=== PATIENT | male | born 1965 | race American Indian/Alaskan Native ===

== ENCOUNTER 2021-02-06 17:49 | Inpatient (IN) | payer MEDICARE ==
[2021-02-06] MEDS ORDERED: traZODone 50 MG TAB PO SCH (22:00)
[2021-02-07 09:52] LABS: Basophils % (Auto) 0.4 % (0.0-1.8); Eosinophils # (Auto) 0.1 K/mm3 (0.0-0.4); Eosinophils % (Auto) 1.9 % (0.0-4.3); Hematocrit 44.8 % (35.5-45.6); Hemoglobin 14.6 gm/dl (11.8-15.2); Lymphocytes # (Auto) 1.4 K/mm3 (1.2-5.4); Mean Corpuscular HGB Conc 33 % (32-34); Mean Corpuscular Volume 91 fl (84-94); Monocytes # (Auto) 0.4 K/mm3 (0.0-0.8); Monocytes % (Auto) 10.4 % (0.0-7.3); Platelet Count 118 K/mm3 (140-440); Red Blood Count 4.95 M/mm3 (3.65-5.03); Red Cell Distribution Width 15.2 % (13.2-15.2)
--- NOTE | 2021-02-07 10:11 | History and Physical Report ---
GP History & Physical - History of Present Illness Date of admission: 02/06/21 Date of Examination: 02/07/21 Reason for Admission: Danger to self, Failure of Outpatient Treatment History of Present Illness: Per Admission Note: Patient brought to unit ambulatory by transportation at 1945 on 02/06. He has a history of schizoaffective disorder and bipolar disorder. He also has a learning disability. The patient was taken to ED by his brother whom patient lives with. The brother states patient has become increasingly depressed. He has stressors of the of a cousin last week and his father is in poor health. The brother reports this depressive state comes before an episode of joe. They are hoping to stop it before it gets worse. Carmita Quijano is a 55y/o male patient who was seen today. The patient is slow to respond. He is a poor historian. He is calm and cooperative. He says he is depressed and has racing thoughts. The patient says he has bipolar but he could not tell what meds he was on outside of trazodone. He denies SI/HI or hallucinations of any kind. He denies any illicit drug use, alcohol or nicotine. PAST PSYCHIATRIC HISTORY: Diagnoses: Schizoaffective Suicide attempts or Self-harm behavior: Denies Prior psychiatric hospitalizations: Denies Substance Abuse history: Denies Previous psychiatric medications tried: could not recall but trazodone Outpatient treatment: yes PAST MEDICAL HISTORY: None reported or document Family Psychiatric History: None reported or documented SOCIAL HISTORY Marital Status: Single Living Arrangements: with brother and dad Employment Status: disabled Access to guns/weapons: denies Education: History of Abuse: denies Legal History: denies REVIEW OF SYSTEMS Constitutional: Negative for weight loss ENT: Negative for stridor Respiratory: Negative for cough or hemoptysis All other systems reviewed and are negative MENTAL STATUS EXAMINATION General Appearance and Behavior: Age appropriate, good hygiene, wearing appropriate clothes, calm and cooperative polite with questioning. Cooperation: engaged Psychomotor Behavior: Psychomotor normal Mood: "depressed" Affect and affective range: congruent with stated mood Thought Process: circumstantial Thought Content: depression Speech: Normal volume, Regular rate and rhythm, Suicidal Ideation: Denies Homicidal Ideation: Denies Hallucinations: Denies Delusions: None elicited Impulse Control: Unimpaired Insight and Judgment: Limited insight and poor judgment Memory: Limited Attention: attentive Orientation: alert and oriented Assessment and Plan (1) Schizoaffective Disorder Current Visit: Yes Status: Acute Treatment Plan Patient admitted for inpatient psychiatric evaluation, medication adjustment and close monitoring The patient's behavior, mood, sleep and appetite will be closely monitored. Patient enrolled in individual and group therapeutic sessions and encouraged to attend. Patient provided with a safe and structured environment. Patient's physical health needs will be addressed by the Hospitalist. Hospitalist Consulted Labs including CBC, CMP, Lipid profile and Hemoglobin A1C levels ordered for baseline reference Social Assessment will be completed and the Public Service Officer will work with patient and family to ensure a suitable and safe disposition Medication adjustment will be made as clinically indicated Started Home meds Start Prozac 10mg po daily Usual Wellness Muslim/Preservation: - Start Trazodone 50 mg po QHS & 50 mg po QHS PRN between 10 PM & 2 AM for ins omnia - Start Melatonin 5 mg po QHS to promote circadian rhythm The patient agreed on the treatment plan, understood the risk, benefit, alternative treatment, potential consequence of no treatment, and gave informed consent. Estimated days: 6 Post hospital care: primary care provider, psychiatric provider Case staffed with Dr. Hernandez Legal Status: Voluntary Reaction to Hospitalization: Accepting Medications and Allergies Allergies Allergy/AdvReac Type Severity Reaction Status Date / Time No Known Allergies Allergy Verified 02/06/21 22:53 Home Medications Medication Instructions Recorded Confirmed Last Taken Type Aripiprazole Lauroxil [Aristada] 882 mg IM QMONTH 02/07/21 02/07/21 Unknown History Aspirin EC [Ecotrin] 325 mg PO QDAY 02/07/21 02/07/21 Unknown History Atorvastatin [Lipitor Tab] 80 mg PO QHS 02/07/21 02/07/21 Unknown History Benztropine [Cogentin] 0.5 mg PO BID 02/07/21 02/07/21 Unknown History Divalproex [Mayo MACHADO] 250 mg PO BID 02/07/21 02/07/21 Unknown History Divalproex [Mayo MACHADO] 500 mg PO TID 02/07/21 02/07/21 Unknown History Mirtazapine 7.5 mg PO HS 02/07/21 02/07/21 Unknown History OLANZapine [Zyprexa] 20 mg PO HS 02/07/21 02/07/21 Unknown History Pantoprazole [Protonix] 40 mg PO QDAY 02/07/21 02/07/21 Unknown History Quetiapine Fumarate [SEROquel] 300 mg PO HS 02/07/21 02/07/21 Unknown History amLODIPine [Norvasc] 10 mg PO DAILY 02/07/21 02/07/21 Unknown History Active Meds: Active Medications Trazodone HCl (Trazodone 50 Mg Tab) 50 mg PO QHS [facility] Last Admin: 02/07/21 02:24 Dose: Not Given Documented by: Results - Results Labs/Vitals: Laboratory Last Values WBC 4.2 K/mm3 (4.5-11.0) L 02/07/21 09:11 RBC 4.95 M/mm3 (3.65-5.03) 02/07/21 09:11 Hgb 14.6 gm/dl (11.8-15.2) 02/07/21 09:11 Hct 44.8 % (35.5-45.6) 02/07/21 09:11 MCV 91 fl (84-94) 02/07/21 09:11 MCH 29 pg (28-32) 02/07/21 09:11 MCHC 33 % (32-34) 02/07/21 09:11 RDW 15.2 % (13.2-15.2) 02/07/21 09:11 Plt Count 118 K/mm3 (140-440) L 02/07/21 09:11 Lymph % (Auto) 34.0 % (13.4-35.0) 02/07/21 09:11 [place] % (Auto) 10.4 % (0.0-7.3) H 02/07/21 09:11 Eos % (Auto) 1.9 % (0.0-4.3) 02/07/21 09:11 Baso % (Auto) 0.4 % (0.0-1.8) 02/07/21 09:11 Lymph # (Auto) 1.4 K/mm3 (1.2-5.4) 02/07/21 09:11 [place] # (Auto) 0.4 K/mm3 (0.0-0.8) 02/07/21 09:11 Eos # (Auto) 0.1 K/mm3 (0.0-0.4) 02/07/21 09:11 Baso # (Auto) 0.0 K/mm3 (0.0-0.1) 02/07/21 09:11 Seg Neutrophils % 53.3 % (40.0-70.0) 02/07/21 09:11 Seg Neutrophils # 2.3 K/mm3 (1.8-7.7) 02/07/21 09:11 POC Glucose 110 mg/dL (70-105) H 02/06/21 22:27 Last Vital Signs Temp 98.2 F 02/06/21 22:00 Pulse 66 02/06/21 22:00 Resp 18 02/06/21 22:00 BP 117/83 02/06/21 22:00 Pulse Ox Physical Examination - Constitutional Vitals: Vital Signs Temp Pulse Resp BP Pulse Ox 98.2 F 66 18 117/83 02/06/21 22:00 02/06/21 22:00 02/06/21 22:00 02/06/21 22:00 Temperature -Last 24 Hours Temperature 98.2 F Mental Status Exam - Vital signs Last Vital Signs Temp 98.2 F 02/06/21 22:00 Pulse 66 02/06/21 22:00 Resp 18 02/06/21 22:00 BP 117/83 02/06/21 22:00 Pulse Ox Physician Certification - Certification Statement Physician Certification Statement: This is an acknowledgement statement that CARMITA QUIJANO is a 55 year old M who requires inpatient psychiatric admission for treatment which could reasonably be expected to improve the patient's condition for Estimated period of time patient will need to remain in the hospital: [ ] Plan for post-hospital care: [ ]
[2021-02-07 10:27] LABS: Albumin 3.5 g/dL (3.9-5); Calcium 9.4 mg/dL (8.4-10.2); Chol/HDL Ratio 1.84 %
[2021-02-07] MEDS ORDERED: ARIPIPRAZOLE LAUROXIL 882 MG/3.2 ML IM SCH (10:30)
[2021-02-07] MEDS ORDERED: DIVALPROEX DR 250 MG TAB PO SCH (11:00)
[2021-02-07] MEDS ORDERED: FLUoxetine 10 MG TAB PO SCH (11:00)
[2021-02-07] MEDS: PANTOPRAZOLE 40 MG TAB PO SCH (11:59)
[2021-02-07] MEDS: ASPIRIN EC 325 MG TAB PO SCH (11:59)
[2021-02-07] MEDS: amLODIPine 10 MG TAB PO SCH (11:59)
[2021-02-07] MEDS: BENZTROPINE 0.5 MG TAB PO SCH ×2 (11:59→21:21)
[2021-02-07 12:30] LABS: Hepatitis C Virus Antibody Non-Reactive (NonReactive)
--- NOTE | 2021-02-07 12:50 | Consultation ---
History of Present Illness - Reason for Consult Consult date: 02/07/21 Medical consult Requesting physician: JHON CABELLO Medications and Allergies Allergies Allergy/AdvReac Type Severity Reaction Status Date / Time No Known Allergies Allergy Verified 02/06/21 22:53 Home Medications Medication Instructions Recorded Confirmed Last Taken Type Aripiprazole Lauroxil [Aristada] 882 mg IM QMONTH 02/07/21 02/07/21 Unknown History Aspirin EC [Ecotrin] 325 mg PO QDAY 02/07/21 02/07/21 Unknown History Atorvastatin [Lipitor Tab] 80 mg PO QHS 02/07/21 02/07/21 Unknown History Benztropine [Cogentin] 0.5 mg PO BID 02/07/21 02/07/21 Unknown History Divalproex [Mayo MACHADO] 250 mg PO BID 02/07/21 02/07/21 Unknown History Divalproex [Mayo MACHADO] 500 mg PO TID 02/07/21 02/07/21 Unknown History Mirtazapine 7.5 mg PO HS 02/07/21 02/07/21 Unknown History OLANZapine [Zyprexa] 20 mg PO HS 02/07/21 02/07/21 Unknown History Pantoprazole [Protonix] 40 mg PO QDAY 02/07/21 02/07/21 Unknown History Quetiapine Fumarate [SEROquel] 300 mg PO HS 02/07/21 02/07/21 Unknown History amLODIPine [Norvasc] 10 mg PO DAILY 02/07/21 02/07/21 Unknown History Active Meds: Active Medications Amlodipine Besylate (Amlodipine 10 Mg Tab) 10 mg PO DAILY [facility] Last Admin: 02/07/21 11:59 Dose: 10 mg Documented by: Aspirin (Aspirin Ec 325 Mg Tab) 325 mg PO QDAY [facility] Last Admin: 02/07/21 11:59 Dose: 325 mg Documented by: Atorvastatin Calcium (Atorvastatin 40 Mg Tab) 80 mg PO QHS [facility] Benztropine Mesylate (Benztropine 0.5 Mg Tab) 0.5 mg PO BID [facility] Last Admin: 02/07/21 11:59 Dose: 0.5 mg Documented by: Divalproex Sodium (Divalproex Dr 250 Mg Tab) 250 mg PO BID [facility] Last Admin: 02/07/21 11:59 Dose: 250 mg Documented by: Divalproex Sodium (Divalproex Dr 500 Mg Tab) 500 mg PO TID [facility] Fluoxetine HCl (Fluoxetine 10 Mg Tab) 10 mg PO QDAY [facility] Last Admin: 02/07/21 11:59 Dose: 10 mg Documented by: Mirtazapine (Mirtazapine 15 Mg Tab) 7.5 mg PO QHS [facility] Miscellaneous Medication (Aripiprazole Lauroxil [Aristada]) 882 mg IM QMONTH [facility] Olanzapine (Olanzapine 10 Mg Tab) 10 mg PO HS [facility] Pantoprazole Sodium (Pantoprazole 40 Mg Tab) 40 mg PO QDAY [facility] Last Admin: 02/07/21 11:59 Dose: 40 mg Documented by: Quetiapine Fumarate (Quetiapine 100 Mg Tab) 300 mg PO HS [facility] Trazodone HCl (Trazodone 50 Mg Tab) 50 mg PO QHS [facility] Last Admin: 02/07/21 02:24 Dose: Not Given Documented by: Exam - Constitutional Vitals: Temp Pulse Resp BP Pulse Ox 97.5 F L 72 18 120/85 97 02/07/21 08:30 02/07/21 11:59 02/07/21 08:30 02/07/21 11:59 02/07/21 08:30 Results - Labs CBC & Chem 7: 02/07/21 09:11 02/07/21 09:11 Labs: Abnormal lab results 02/06/21 02/07/21 02/07/21 Range/Units 22:27 09:11 09:11 WBC 4.2 L (4.5-11.0) K/mm3 Plt Count 118 L (140-440) K/mm3 [place] % (Auto) 10.4 H (0.0-7.3) % BUN 27 H (9-20) mg/dL Creatinine 1.6 H (0.8-1.3) mg/dL POC Glucose 110 H (70-105) mg/dL AST 55 H (5-40) units/L Albumin 3.5 L (3.9-5) g/dL LDL Cholesterol Direct 46 L (50-130) mg/dL HDL Cholesterol 77 H (40-59) mg/dL
--- NOTE | 2021-02-07 12:52 | Consultation ---
History of Present Illness - Reason for Consult Consult date: 02/07/21 Medical consult Requesting physician: JHON CABELLO - History of Present Illness 55-year-old male patient with significant past medical history of bronchial asthma history of HIV hypertension major depression anxiety polysubstance abuse was admitted to the psych unit for suicidal thoughts and severe depression and anxiety Hospitalist service was requested medical consultation When I evaluated the patient patient is severely depressed very calm and minimally communicative Not in acute distress, patient denies any chest pain denies shortness of breath Patient denies headache or dizziness Complains of mild depression, sometimes patient does not communicate No other history available Past History Past Medical History: HIV/AIDS (HIV), hypertension, hyperlipidemia, other (Bronchial asthma, schizoaffective) Past Surgical History: No surgical history Social history: smoking, alcohol abuse, other (Recreational drug use) Family history: no significant family history Medications and Allergies Allergies Allergy/AdvReac Type Severity Reaction Status Date / Time No Known Allergies Allergy Verified 02/06/21 22:53 Home Medications Medication Instructions Recorded Confirmed Last Taken Type Aripiprazole Lauroxil [Aristada] 882 mg IM QMONTH 02/07/21 02/07/21 Unknown History Aspirin EC [Ecotrin] 325 mg PO QDAY 02/07/21 02/07/21 Unknown History Atorvastatin [Lipitor Tab] 80 mg PO QHS 02/07/21 02/07/21 Unknown History Benztropine [Cogentin] 0.5 mg PO BID 02/07/21 02/07/[address] Jameel MACHADO] 250 mg PO BID 02/07/21 02/07/[address] Jameel MACHADO] 500 mg PO TID 02/07/21 02/07/21 Unknown History Mirtazapine 7.5 mg PO HS 02/07/21 02/07/21 Unknown History OLANZapine [Zyprexa] 20 mg PO HS 02/07/21 02/07/21 Unknown History Pantoprazole [Protonix] 40 mg PO QDAY 02/07/21 02/07/21 Unknown History Quetiapine Fumarate [SEROquel] 300 mg PO HS 02/07/21 02/07/21 Unknown History amLODIPine [Norvasc] 10 mg PO DAILY 02/07/21 02/07/21 Unknown History Active Meds: Active Medications Amlodipine Besylate (Amlodipine 10 Mg Tab) 10 mg PO DAILY [facility] Last Admin: 02/07/21 11:59 Dose: 10 mg Documented by: Aspirin (Aspirin Ec 325 Mg Tab) 325 mg PO QDAY [facility] Last Admin: 02/07/21 11:59 Dose: 325 mg Documented by: Atorvastatin Calcium (Atorvastatin 40 Mg Tab) 80 mg PO QHS [facility] Benztropine Mesylate (Benztropine 0.5 Mg Tab) 0.5 mg PO BID [facility] Last Admin: 02/07/21 11:59 Dose: 0.5 mg Documented by: Divalproex Sodium (Divalproex Dr 250 Mg Tab) 250 mg PO BID [facility] Last Admin: 02/07/21 11:59 Dose: 250 mg Documented by: Divalproex Sodium (Divalproex Dr 500 Mg Tab) 500 mg PO TID [facility] Fluoxetine HCl (Fluoxetine 10 Mg Tab) 10 mg PO QDAY [facility] Last Admin: 02/07/21 11:59 Dose: 10 mg Documented by: Mirtazapine (Mirtazapine 15 Mg Tab) 7.5 mg PO QHS [facility] Miscellaneous Medication (Aripiprazole Lauroxil [Aristada]) 882 mg IM QMONTH [facility] Olanzapine (Olanzapine 10 Mg Tab) 10 mg PO HS [facility] Pantoprazole Sodium (Pantoprazole 40 Mg Tab) 40 mg PO QDAY [facility] Last Admin: 02/07/21 11:59 Dose: 40 mg Documented by: Quetiapine Fumarate (Quetiapine 100 Mg Tab) 300 mg PO HS [facility] Trazodone HCl (Trazodone 50 Mg Tab) 50 mg PO QHS [facility] Last Admin: 02/07/21 02:24 Dose: Not Given Documented by: Review of Systems ROS unobtainable: due to mental status Exam - Constitutional Vitals: Temp Pulse Resp BP Pulse Ox 97.5 F L 72 18 120/85 97 02/07/21 08:30 02/07/21 11:59 02/07/21 08:30 02/07/21 11:59 02/07/21 08:30 General appearance: Present: no acute distress, other (Depressed, calm and minimally communicative) - EENT Eyes: Present: PERRL, EOM intact - Neck Neck: Present: supple, normal ROM - Respiratory Respiratory effort: normal Respiratory: bilateral: diminished, rhonchi, negative: rales, wheezing - Cardiovascular Rhythm: regular Heart Sounds: Present: S1 & S2 - Extremities Extremities: no ischemia, No edema - Abdominal General gastrointestinal: Present: soft, non-tender, non-distended, normal bowel sounds - Integumentary Integumentary: Present: clear, warm - Musculoskeletal Musculoskeletal: generalized weakness - Psychiatric Psychiatric: cooperative, depressed, other (Minimally communicative) - Neurologic Neurologic: moves all extremities Results - Labs CBC & Chem 7: 02/07/21 09:11 02/07/21 09:11 Labs: Abnormal lab results 02/06/21 02/07/21 02/07/21 Range/Units 22:27 09:11 09:11 WBC 4.2 L (4.5-11.0) K/mm3 Plt Count 118 L (140-440) K/mm3 [place] % (Auto) 10.4 H (0.0-7.3) % BUN 27 H (9-20) mg/dL Creatinine 1.6 H (0.8-1.3) mg/dL POC Glucose 110 H (70-105) mg/dL AST 55 H (5-40) units/L Albumin 3.5 L (3.9-5) g/dL LDL Cholesterol Direct 46 L (50-130) mg/dL HDL Cholesterol 77 H (40-59) mg/dL Assessment and Plan --Hypertension; well controlled Continue current home antihypertensives And as needed hydralazine. --History of bronchial asthma; Patient is stable no shortness of breath However albuterol inhaler every 6 hours as needed for shortness of breath and wheeze --History of HIV; Resume home medications --Acute kidney injury; vasomotor nephropathy Closely monitor renal function Avoid nephrotoxins --Dyslipidemia; continue statin --DVT prophylaxis; SCDs while resting --Full CODE STATUS We will closely monitor the patient and adjust the management as needed Plan of care reviewed with the patient and his nurse Thank you for this consultation. We will follow the patient along with you as needed Call us with questions ;;
[2021-02-07 14:27] LABS: Hepatitis B Surface Antigen Nonreactive (Negative)
[2021-02-07] MEDS: DIVALPROEX DR 500 MG TAB PO SCH ×2 (15:15→21:21)
[2021-02-07] MEDS: MIRTAZAPINE 15 MG TAB PO SCH (21:21)
[2021-02-07] MEDS: QUEtiapine 100 MG TAB PO SCH (21:22)
[2021-02-07] MEDS ORDERED: NON-FORMULARY EACH (Quetiapine Fumarate [Seroquel] 300 MG Tablet) PO SCH (22:00)
[2021-02-07] MEDS ORDERED: NON-FORMULARY EACH (Mirtazapine [Mirtazapine] 7.5 MG Tablet) PO SCH (22:00)
[2021-02-07] MEDS ORDERED: traZODone 50 MG TAB PO PRN (22:00)
[2021-02-07] MEDS ORDERED: NON-FORMULARY EACH (Olanzapine [Zyprexa] 20 MG Tablet) PO SCH (22:00)
[2021-02-07] MEDS ORDERED: NON-FORMULARY EACH (Atorvastatin [Lipitor] 80 MG Tablet) PO SCH (22:00)
--- NOTE | 2021-02-08 09:23 | Progress Note ---
Subjective Date of service: 02/08/21 Principal diagnosis: Schizoaffective Disorder Subjective Comment: The patient was seen today, he is slow to respond. He is looking around as he speaks. He appears delayed. The patient could possibly be responding to internal stimuli, although he denies hallucinations. He does verbalized depression. He denies hallucinations. REVIEW OF SYSTEMS Constitutional: Negative for weight loss ENT: Negative for stridor Respiratory: Negative for cough or hemoptysis All other systems reviewed and are negative MENTAL STATUS EXAMINATION General Appearance and Behavior: Age appropriate, good hygiene, wearing appro priate clothes, calm and cooperative polite with questioning. Cooperation: engaged Psychomotor Behavior: Psychomotor normal Mood: "depressed" Affect and affective range: congruent with stated mood Thought Process: circumstantial Thought Content: depression Speech: Normal volume, Regular rate and rhythm, Suicidal Ideation: Denies Homicidal Ideation: Denies Hallucinations: Denies Delusions: None elicited Impulse Control: Unimpaired Insight and Judgment: Limited insight and poor judgment Memory: Limited Attention: attentive Orientation: alert and oriented Assessment and Plan (1) Schizoaffective Disorder Current Visit: Yes Status: Acute Treatment Plan Patient admitted for inpatient psychiatric evaluation, medication adjustment and close monitoring The patient's behavior, mood, sleep and appetite will be closely monitored. Patient enrolled in individual and group therapeutic sessions and encouraged to attend. Patient provided with a safe and structured environment. Patient's physical health needs will be addressed by the Hospitalist. Hospitalist Consulted Labs including CBC, CMP, Lipid profile and Hemoglobin A1C levels ordered for baseline reference Social Assessment will be completed and the Teleradiologist will work with patient and family to ensure a suitable and safe disposition Medication adjustment will be made as clinically indicated Inxcrease Prozac 20mg po daily Continue increase of home Seroquel at 300mg po qhs Usual Wellness [facility]/Preservation: - Start Trazodone 50 mg po QHS & 50 mg po QHS PRN between 10 PM & 2 AM for insomnia - Start Melatonin 5 mg po QHS to promote circadian rhythm The patient agreed on the treatment plan, understood the risk, benefit, alternative treatment, potential consequence of no treatment, and gave informed consent. Estimated days: 6 Post hospital care: primary care provider, psychiatric provider Case staffed with Dr. Hernandez Medications and Allergies Allergies Allergy/AdvReac Type Severity Reaction Status Date / Time No Known Allergies Allergy Verified 02/06/21 22:53 Home Medications Medication Instructions Recorded Confirmed Last Taken Type Aripiprazole Lauroxil [Aristada] 882 mg IM QMONTH 02/07/21 02/07/21 Unknown History Aspirin EC [Ecotrin] 325 mg PO QDAY 02/07/21 02/07/21 Unknown History Atorvastatin [Lipitor Tab] 80 mg PO QHS 02/07/21 02/07/21 Unknown History Benztropine [Cogentin] 0.5 mg PO BID 02/07/21 02/07/21 Unknown History Divalproex [Mayo MACHADO] 250 mg PO BID 02/07/21 02/07/21 Unknown History Divalproex [Mayo MACHADO] 500 mg PO TID 02/07/21 02/07/21 Unknown History Mirtazapine 7.5 mg PO 02/07/21 02/07/21 Unknown History OLANZapine [Zyprexa] 20 mg PO HS 02/07/21 02/07/21 Unknown History Pantoprazole [Protonix] 40 mg PO QDAY 02/07/21 02/07/21 Unknown History Quetiapine Fumarate [SEROquel] 300 mg PO HS 02/07/21 02/07/21 Unknown History amLODIPine [Norvasc] 10 mg PO DAILY 02/07/21 02/07/21 Unknown History Active Meds: Active Medications Amlodipine Besylate (Amlodipine 10 Mg Tab) 10 mg PO DAILY [facility] Last Admin: 02/07/21 11:59 Dose: 10 mg Documented by: Aspirin (Aspirin Ec 325 Mg Tab) 325 mg PO QDAY [facility] Last Admin: 02/07/21 11:59 Dose: 325 mg Documented by: Atorvastatin Calcium (Atorvastatin 40 Mg Tab) 80 mg PO QHS [facility] Last Admin: 02/07/21 21:21 Dose: 80 mg Documented by: Benztropine Mesylate (Benztropine 0.5 Mg Tab) 0.5 mg PO BID [facility] Last Admin: 02/07/21 21:21 Dose: 0.5 mg Documented by: Divalproex Sodium (Divalproex Dr 500 Mg Tab) 500 mg PO TID [facility] Last Admin: 02/07/21 21:21 Dose: 500 mg Documented by: Fluoxetine HCl (Fluoxetine 10 Mg Tab) 10 mg PO QDAY [facility] Last Admin: 02/07/21 11:59 Dose: 10 mg Documented by: Mirtazapine (Mirtazapine 15 Mg Tab) 7.5 mg PO QHS [facility] Last Admin: 02/07/21 21:21 Dose: 7.5 mg Documented by: Miscellaneous Medication (Aripiprazole Lauroxil [Aristada]) 882 mg IM QMONTH [facility] Olanzapine (Olanzapine 10 Mg Tab) 10 mg PO HS [facility] Last Admin: 02/07/21 21:21 Dose: 10 mg Documented by: Pantoprazole Sodium (Pantoprazole 40 Mg Tab) 40 mg PO QDAY [facility] Last Admin: 02/07/21 11:59 Dose: 40 mg Documented by: Quetiapine Fumarate (Quetiapine 100 Mg Tab) 300 mg PO HS [facility] Last Admin: 02/07/21 21:22 Dose: 300 mg Documented by: Trazodone HCl (Trazodone 50 Mg Tab) 50 mg PO QHS PRN PRN Reason: Insomnia Results - Results Labs/Vitals: Laboratory Last Values WBC 4.2 K/mm3 (4.5-11.0) L 02/07/21 09:11 RBC 4.95 M/mm3 (3.65-5.03) 02/07/21 09:11 Hgb 14.6 gm/dl (11.8-15.2) 02/07/21 09:11 Hct 44.8 % (35.5-45.6) 02/07/21 09:11 MCV 91 fl (84-94) 02/07/21 09:11 MCH 29 pg (28-32) 02/07/21 09:11 MCHC 33 % (32-34) 02/07/21 09:11 RDW 15.2 % (13.2-15.2) 02/07/21 09:11 Plt Count 118 K/mm3 (140-440) L 02/07/21 09:11 Lymph % (Auto) 34.0 % (13.4-35.0) 02/07/21 09:11 [place] % (Auto) 10.4 % (0.0-7.3) H 02/07/21 09:11 Eos % (Auto) 1.9 % (0.0-4.3) 02/07/21 09:11 Baso % (Auto) 0.4 % (0.0-1.8) 02/07/21 09:11 Lymph # (Auto) 1.4 K/mm3 (1.2-5.4) 02/07/21 09:11 [place] # (Auto) 0.4 K/mm3 (0.0-0.8) 02/07/21 09:11 Eos # (Auto) 0.1 K/mm3 (0.0-0.4) 02/07/21 09:11 Baso # (Auto) 0.0 K/mm3 (0.0-0.1) 02/07/21 09:11 Seg Neutrophils % 53.3 % (40.0-70.0) 02/07/21 09:11 Seg Neutrophils # 2.3 K/mm3 (1.8-7.7) 02/07/21 09:11 Sodium 139 mmol/L (137-145) 02/07/21 09:11 Potassium 4.4 mmol/L (3.6-5.0) 02/07/21 09:11 Chloride 102.8 mmol/L (98-107) 02/07/21 09:11 Carbon Dioxide 25 mmol/L (22-30) 02/07/21 09:11 Anion Gap 16 mmol/L 02/07/21 09:11 BUN 27 mg/dL (9-20) H 02/07/21 09:11 Creatinine 1.6 mg/dL (0.8-1.3) H 02/07/21 09:11 Estimated GFR 55 ml/min 02/07/21 09:11 BUN/Creatinine Ratio 17 % 02/07/21 09:11 Glucose 83 mg/dL (75-100) 02/07/21 09:11 POC Glucose 110 mg/dL (70-105) H 02/06/21 22:27 Calcium 9.4 mg/dL (8.4-10.2) 02/07/21 09:11 Total Bilirubin 0.50 mg/dL (0.1-1.2) 02/07/21 09:11 AST 55 units/L (5-40) H 02/07/21 09:11 ALT 31 units/L (7-56) 02/07/21 09:11 Alkaline Phosphatase 56 units/L (35-129) 02/07/21 09:11 Total Protein 7.5 g/dL (6.3-8.2) 02/07/21 09:11 Albumin 3.5 g/dL (3.9-5) L 02/07/21 09:11 Albumin/Globulin Ratio 0.9 % 02/07/21 09:11 Triglycerides 69 mg/dL (2-149) 02/07/21 09:11 Cholesterol 142 mg/dL (50-199) 02/07/21 09:11 LDL Cholesterol Direct 46 mg/dL (50-130) L 02/07/21 09:11 HDL Cholesterol 77 mg/dL (40-59) H 02/07/21 09:11 Cholesterol/HDL Ratio 1.84 % 02/07/21 09:11 TSH 1.120 mlU/mL (0.270-4.200) 02/07/21 09:11 Hepatitis A IgM Ab Non-reactive (NonReactive) 02/07/21 09:11 Hep Bs Antigen Nonreactive (Negative) 02/07/21 09:11 Hep B Core IgM Ab Non-reactive (NonReactive) 02/07/21 09:11 Hepatitis C Antibody Non-reactive (NonReactive) 02/07/21 09:11 Last Vital Signs Temp 98.6 F 02/07/21 20:14 Pulse 92 H 02/07/21 20:14 Resp 16 02/07/21 20:14 BP 122/86 02/07/21 20:14 Pulse Ox 97 02/07/21 20:14
[2021-02-08] MEDS: amLODIPine 10 MG TAB PO SCH (09:51)
[2021-02-08] MEDS: PANTOPRAZOLE 40 MG TAB PO SCH (09:51)
[2021-02-08] MEDS: ASPIRIN EC 325 MG TAB PO SCH (09:51)
[2021-02-08] MEDS: DIVALPROEX DR 500 MG TAB PO SCH ×3 (09:52→21:19)
[2021-02-08] MEDS: BENZTROPINE 0.5 MG TAB PO SCH ×2 (09:52→21:19)
[2021-02-08] MEDS: FLUoxetine 20 MG CAP PO SCH (12:52)
[2021-02-08] MEDS: QUEtiapine 100 MG TAB PO SCH (21:19)
[2021-02-08] MEDS: MIRTAZAPINE 15 MG TAB PO SCH (21:20)
--- NOTE | 2021-02-09 10:05 | Progress Note ---
Subjective Date of service: 02/09/21 Principal diagnosis: Schizoaffective Disorder Subjective Comment: The patient was seen today, he is slow to respond. He says he's "doing alright, but a little depressed." He denies SI/HI or hallucinatoins. REVIEW OF SYSTEMS Constitutional: Negative for weight loss ENT: Negative for stridor Respiratory: Negative for cough or hemoptysis All other systems reviewed and are negative MENTAL STATUS EXAMINATION General Appearance and Behavior: Age appropriate, good hygiene, wearing appropriate clothes, calm and cooperative polite with questioning. Cooperation: engaged Psychomotor Behavior: Psychomotor normal Mood: "depressed" Affect and affective range: congruent with stated mood Thought Process: circumstantial Thought Content: depression Speech: Normal volume, Regular rate and rhythm, Suicidal Ideation: Denies Homicidal Ideation: Denies Hallucinations: Denies Delusions: None elicited Impulse Control: Unimpaired Insight and Judgment: Limited insight and poor judgment Memory: Limited Attention: attentive Orientation: alert and oriented Assessment and Plan (1) Schizoaffective Disorder Current Visit: Yes Status: Acute Treatment Plan Patient admitted for inpatient psychiatric evaluation, medication adjustment and close monitoring The patient's behavior, mood, sleep and appetite will be closely monitored. Patient enrolled in individual and group therapeutic sessions and encouraged to attend. Patient provided with a safe and structured environment. Patient's physical health needs will be addressed by the Hospitalist. Hospitalist Consulted Labs including CBC, CMP, Lipid profile and Hemoglobin A1C levels ordered for baseline reference Social Assessment will be completed and the Power Builder Developer will work with patient and family to ensure a suitable and safe disposition Medication adjustment will be made as clinically indicated Increased Prozac 20mg po daily yesterday Continue increase of home Seroquel at 300mg po qhs Usual Wellness Judaism/Preservation: - Start Trazodone 50 mg po QHS & 50 mg po QHS PRN between 10 PM & 2 AM for insomnia - Start Melatonin 5 mg po QHS to promote circadian rhythm The patient agreed on the treatment plan, understood the risk, benefit, alternative treatment, potential consequence of no treatment, and gave informed consent. Estimated days: 6 Post hospital care: primary care provider, psychiatric provider Case staffed with Dr. Hernandez Medications and Allergies Allergies Allergy/AdvReac Type Severity Reaction Status Date / Time No Known Allergies Allergy Verified 02/06/21 22:53 Home Medications Medication Instructions Recorded Confirmed Last Taken Type Aripiprazole Lauroxil [Aristada] 882 mg IM QMONTH 02/07/21 02/07/21 Unknown History Aspirin EC [Ecotrin] 325 mg PO QDAY 02/07/21 02/07/21 Unknown History Atorvastatin [Lipitor Tab] 80 mg PO QHS 02/07/21 02/07/21 Unknown History Benztropine [Cogentin] 0.5 mg PO BID 02/07/21 02/07/21 Unknown History Divalproex [Mayo MACHADO] 250 mg PO BID 02/07/21 02/07/21 Unknown History Divalproex [Mayo MACHADO] 500 mg PO TID 02/07/21 02/07/21 Unknown History Mirtazapine 7.5 mg PO 02/07/21 02/07/21 Unknown History OLANZapine [Zyprexa] 20 mg PO HS 02/07/21 02/07/21 Unknown History Pantoprazole [Protonix] 40 mg PO QDAY 02/07/21 02/07/21 Unknown History Quetiapine Fumarate [SEROquel] 300 mg PO 02/07/21 02/07/21 Unknown History amLODIPine [Norvasc] 10 mg PO DAILY 02/07/21 02/07/21 Unknown History Active Meds: Active Medications Amlodipine Besylate (Amlodipine 10 Mg Tab) 10 mg PO DAILY [facility] Last Admin: 02/08/21 09:51 Dose: 10 mg Documented by: Aspirin (Aspirin Ec 325 Mg Tab) 325 mg PO QDAY [facility] Last Admin: 02/08/21 09:51 Dose: 325 mg Documented by: Atorvastatin Calcium (Atorvastatin 40 Mg Tab) 80 mg PO QHS [facility] Last Admin: 02/08/21 21:20 Dose: 80 mg Documented by: Benztropine Mesylate (Benztropine 0.5 Mg Tab) 0.5 mg PO BID [facility] Last Admin: 02/08/21 21:19 Dose: 0.5 mg Documented by: Divalproex Sodium (Divalproex Dr 500 Mg Tab) 500 mg PO TID [facility] Last Admin: 02/08/21 21:19 Dose: 500 mg Documented by: Fluoxetine HCl (Fluoxetine 20 Mg Cap) 20 mg PO QDAY [facility] Last Admin: 02/08/21 12:52 Dose: 20 mg Documented by: Mirtazapine (Mirtazapine 15 Mg Tab) 7.5 mg PO QHS [facility] Last Admin: 02/08/21 21:20 Dose: 7.5 mg Documented by: Miscellaneous Medication (Aripiprazole Lauroxil [Aristada]) 882 mg IM QMONTH [facility] Olanzapine (Olanzapine 10 Mg Tab) 10 mg PO [facility] Last Admin: 02/08/21 21:19 Dose: 10 mg Documented by: Pantoprazole Sodium (Pantoprazole 40 Mg Tab) 40 mg PO QDAY [facility] Last Admin: 02/08/21 09:51 Dose: 40 mg Documented by: Quetiapine Fumarate (Quetiapine 100 Mg Tab) 300 mg PO [facility] Last Admin: 02/08/21 21:19 Dose: 300 mg Documented by: Trazodone HCl (Trazodone 50 Mg Tab) 50 mg PO QHS PRN PRN Reason: Insomnia Results - Results Labs/Vitals: Laboratory Last Values WBC 4.2 K/mm3 (4.5-11.0) L 02/07/21 09:11 RBC 4.95 M/mm3 (3.65-5.03) 02/07/21 09:11 Hgb 14.6 gm/dl (11.8-15.2) 02/07/21 09:11 Hct 44.8 % (35.5-45.6) 02/07/21 09:11 MCV 91 fl (84-94) 02/07/21 09:11 MCH 29 pg (28-32) 02/07/21 09:11 MCHC 33 % (32-34) 02/07/21 09:11 RDW 15.2 % (13.2-15.2) 02/07/21 09:11 Plt Count 118 K/mm3 (140-440) L 02/07/21 09:11 Lymph % (Auto) 34.0 % (13.4-35.0) 02/07/21 09:11 [place] % (Auto) 10.4 % (0.0-7.3) H 02/07/21 09:11 Eos % (Auto) 1.9 % (0.0-4.3) 02/07/21 09:11 Baso % (Auto) 0.4 % (0.0-1.8) 02/07/21 09:11 Lymph # (Auto) 1.4 K/mm3 (1.2-5.4) 02/07/21 09:11 [place] # (Auto) 0.4 K/mm3 (0.0-0.8) 02/07/21 09:11 Eos # (Auto) 0.1 K/mm3 (0.0-0.4) 02/07/21 09:11 Baso # (Auto) 0.0 K/mm3 (0.0-0.1) 02/07/21 09:11 Seg Neutrophils % 53.3 % (40.0-70.0) 02/07/21 09:11 Seg Neutrophils # 2.3 K/mm3 (1.8-7.7) 02/07/21 09:11 Sodium 139 mmol/L (137-145) 02/07/21 09:11 Potassium 4.4 mmol/L (3.6-5.0) 02/07/21 09:11 Chloride 102.8 mmol/L (98-107) 02/07/21 09:11 Carbon Dioxide 25 mmol/L (22-30) 02/07/21 09:11 Anion Gap 16 mmol/L 02/07/21 09:11 BUN 27 mg/dL (9-20) H 02/07/21 09:11 Creatinine 1.6 mg/dL (0.8-1.3) H 02/07/21 09:11 Estimated GFR 55 ml/min 02/07/21 09:11 BUN/Creatinine Ratio 17 % 02/07/21 09:11 Glucose 83 mg/dL (75-100) 02/07/21 09:11 POC Glucose 110 mg/dL (70-105) H 02/06/21 22:27 Calcium 9.4 mg/dL (8.4-10.2) 02/07/21 09:11 Total Bilirubin 0.50 mg/dL (0.1-1.2) 02/07/21 09:11 AST 55 units/L (5-40) H 02/07/21 09:11 ALT 31 units/L (7-56) 02/07/21 09:11 Alkaline Phosphatase 56 units/L (35-129) 02/07/21 09:11 Total Protein 7.5 g/dL (6.3-8.2) 02/07/21 09:11 Albumin 3.5 g/dL (3.9-5) L 02/07/21 09:11 Albumin/Globulin Ratio 0.9 % 02/07/21 09:11 Triglycerides 69 mg/dL (2-149) 02/07/21 09:11 Cholesterol 142 mg/dL (50-199) 02/07/21 09:11 LDL Cholesterol Direct 46 mg/dL (50-130) L 02/07/21 09:11 HDL Cholesterol 77 mg/dL (40-59) H 02/07/21 09:11 Cholesterol/HDL Ratio 1.84 % 02/07/21 09:11 TSH 1.120 mlU/mL (0.270-4.200) 02/07/21 09:11 Hepatitis A IgM Ab Non-reactive (NonReactive) 02/07/21 09:11 Hep Bs Antigen Nonreactive (Negative) 02/07/21 09:11 Hep B Core IgM Ab Non-reactive (NonReactive) 02/07/21 09:11 Hepatitis C Antibody Non-reactive (NonReactive) 02/07/21 09:11 Last Vital Signs Temp 98.5 F 02/08/21 19:29 Pulse 92 H 02/08/21 19:29 Resp 18 02/08/21 19:29 BP 151/95 02/08/21 19:29 Pulse Ox 97 02/08/21 19:29
[2021-02-09] MEDS: amLODIPine 10 MG TAB PO SCH (10:47)
[2021-02-09] MEDS: DIVALPROEX DR 500 MG TAB PO SCH ×3 (10:47→20:53)
[2021-02-09] MEDS: ASPIRIN EC 325 MG TAB PO SCH (10:47)
[2021-02-09] MEDS: FLUoxetine 20 MG CAP PO SCH (10:47)
[2021-02-09] MEDS: PANTOPRAZOLE 40 MG TAB PO SCH (10:47)
[2021-02-09] MEDS: BENZTROPINE 0.5 MG TAB PO SCH ×2 (10:47→21:25)
[2021-02-09] MEDS: QUEtiapine 100 MG TAB PO SCH (21:25)
[2021-02-09] MEDS: MIRTAZAPINE 15 MG TAB PO SCH (21:26)
[2021-02-10] MEDS: amLODIPine 10 MG TAB PO SCH (09:14)
[2021-02-10] MEDS: ASPIRIN EC 325 MG TAB PO SCH (09:14)
[2021-02-10] MEDS: PANTOPRAZOLE 40 MG TAB PO SCH (09:14)
[2021-02-10] MEDS: DIVALPROEX DR 500 MG TAB PO SCH (09:14)
[2021-02-10] MEDS: BENZTROPINE 0.5 MG TAB PO SCH ×2 (09:14→21:18)
[2021-02-10] MEDS: FLUoxetine 20 MG CAP PO SCH (09:15)
--- NOTE | 2021-02-10 09:23 | Progress Note ---
Subjective Date of service: 02/10/21 Principal diagnosis: Schizoaffective Disorder Subjective Comment: Nurse Note: Last evening the patient spent in the activity room. He has little interaction with others. He presents as sad and depressed. He is pleasant and cooperative with care. He has a good appetite and is medication compliant. The patient was seen today, he is slow to respond. He says he is depressed a little. He could not explain why. He denies SI/HI or hallucinations. REVIEW OF SYSTEMS Constitutional: Negative for weight loss ENT: Negative for stridor Respiratory: Negative for cough or hemoptysis All other systems reviewed and are negative MENTAL STATUS EXAMINATION General Appearance and Behavior: Age appropriate, good hygiene, wearing appropriate clothes, calm and cooperative polite with questioning. Cooperation: engaged Psychomotor Behavior: Psychomotor normal Mood: "depressed" Affect and affective range: congruent with stated mood Thought Process: circumstantial Thought Content: depression Speech: Normal volume, Regular rate and rhythm, Suicidal Ideation: Denies Homicidal Ideation: Denies Hallucinations: Denies Delusions: None elicited Impulse Control: Unimpaired Insight and Judgment: Limited insight and poor judgment Memory: Limited Attention: attentive Orientation: alert and oriented Assessment and Plan (1) Schizoaffective Disorder Current Visit: Yes Status: Acute Treatment Plan Patient admitted for inpatient psychiatric evaluation, medication adjustment and close monitoring The patient's behavior, mood, sleep and appetite will be closely monitored. Patient enrolled in individual and group therapeutic sessions and encouraged to attend. Patient provided with a safe and structured environment. Patient's physical health needs will be addressed by the Hospitalist. Hospitalist Consulted Labs including CBC, CMP, Lipid profile and Hemoglobin A1C levels ordered for baseline reference Social Assessment will be completed and the Research Worker Kitchen will work with patient and family to ensure a suitable and safe disposition Valproic level 02/11 Medication adjustment will be made as clinically indicated Increased Prozac 30mg po daily Usual Wellness Evangelical/Preservation: - Start Trazodone 50 mg po QHS & 50 mg po QHS PRN between 10 PM & 2 AM for insomnia - Start Melatonin 5 mg po QHS to promote circadian rhythm The patient agreed on the treatment plan, understood the risk, benefit, alternative treatment, potential consequence of no treatment, and gave informed consent. Estimated days: 6 Post hospital care: primary care provider, psychiatric provider Case staffed with Dr. Hernandez Medications and Allergies Allergies Allergy/AdvReac Type Severity Reaction Status Date / Time No Known Allergies Allergy Verified 02/06/21 22:53 Home Medications Medication Instructions Recorded Confirmed Last Taken Type Aripiprazole Lauroxil [Aristada] 882 mg IM QMONTH 02/07/21 02/07/21 Unknown History Aspirin EC [Ecotrin] 325 mg PO QDAY 02/07/21 02/07/21 Unknown History Atorvastatin [Lipitor Tab] 80 mg PO QHS 02/07/21 02/07/21 Unknown History Benztropine [Cogentin] 0.5 mg PO BID 02/07/21 02/07/21 Unknown History Divalproex [Mayo MACHADO] 250 mg PO BID 02/07/21 02/07/21 Unknown History Divalproex [Mayo MACHADO] 500 mg PO TID 02/07/21 02/07/21 Unknown History Mirtazapine 7.5 mg PO HS 02/07/21 02/07/21 Unknown History OLANZapine [Zyprexa] 20 mg PO HS 02/07/21 02/07/21 Unknown History Pantoprazole [Protonix] 40 mg PO QDAY 02/07/21 02/07/21 Unknown History Quetiapine Fumarate [SEROquel] 300 mg PO HS 02/07/21 02/07/21 Unknown History amLODIPine [Norvasc] 10 mg PO DAILY 02/07/21 02/07/21 Unknown History Active Meds: Active Medications Amlodipine Besylate (Amlodipine 10 Mg Tab) 10 mg PO DAILY [facility] Last Admin: 02/10/21 09:14 Dose: 10 mg Documented by: Aspirin (Aspirin Ec 325 Mg Tab) 325 mg PO QDAY [facility] Last Admin: 02/10/21 09:14 Dose: 325 mg Documented by: Atorvastatin Calcium (Atorvastatin 40 Mg Tab) 80 mg PO QHS [facility] Last Admin: 02/09/21 21:25 Dose: 80 mg Documented by: Benztropine Mesylate (Benztropine 0.5 Mg Tab) 0.5 mg PO BID [facility] Last Admin: 02/10/21 09:14 Dose: 0.5 mg Documented by: Divalproex Sodium (Divalproex Dr 500 Mg Tab) 500 mg PO TID [facility] Last Admin: 02/10/21 09:14 Dose: 500 mg Documented by: Fluoxetine HCl (Fluoxetine 20 Mg Cap) 20 mg PO QDAY [facility] Last Admin: 02/10/21 09:15 Dose: 20 mg Documented by: Mirtazapine (Mirtazapine 15 Mg Tab) 7.5 mg PO QHS [facility] Last Admin: 02/09/21 21:26 Dose: 7.5 mg Documented by: Miscellaneous Medication (Aripiprazole Lauroxil [Aristada]) 882 mg IM QMONTH [facility] Olanzapine (Olanzapine 10 Mg Tab) 10 mg PO [facility] Last Admin: 02/09/21 21:25 Dose: 10 mg Documented by: Pantoprazole Sodium (Pantoprazole 40 Mg Tab) 40 mg PO QDAY [facility] Last Admin: 02/10/21 09:14 Dose: 40 mg Documented by: Quetiapine Fumarate (Quetiapine 100 Mg Tab) 300 mg PO [facility] Last Admin: 02/09/21 21:25 Dose: 300 mg Documented by: Trazodone HCl (Trazodone 50 Mg Tab) 50 mg PO QHS PRN PRN Reason: Insomnia Results - Results Labs/Vitals: Laboratory Last Values WBC 4.2 K/mm3 (4.5-11.0) L 02/07/21 09:11 RBC 4.95 M/mm3 (3.65-5.03) 02/07/21 09:11 Hgb 14.6 gm/dl (11.8-15.2) 02/07/21 09:11 Hct 44.8 % (35.5-45.6) 02/07/21 09:11 MCV 91 fl (84-94) 02/07/21 09:11 MCH 29 pg (28-32) 02/07/21 09:11 MCHC 33 % (32-34) 02/07/21 09:11 RDW 15.2 % (13.2-15.2) 02/07/21 09:11 Plt Count 118 K/mm3 (140-440) L 02/07/21 09:11 Lymph % (Auto) 34.0 % (13.4-35.0) 02/07/21 09:11 [place] % (Auto) 10.4 % (0.0-7.3) H 02/07/21 09:11 Eos % (Auto) 1.9 % (0.0-4.3) 02/07/21 09:11 Baso % (Auto) 0.4 % (0.0-1.8) 02/07/21 09:11 Lymph # (Auto) 1.4 K/mm3 (1.2-5.4) 02/07/21 09:11 [place] # (Auto) 0.4 K/mm3 (0.0-0.8) 02/07/21 09:11 Eos # (Auto) 0.1 K/mm3 (0.0-0.4) 02/07/21 09:11 Baso # (Auto) 0.0 K/mm3 (0.0-0.1) 02/07/21 09:11 Seg Neutrophils % 53.3 % (40.0-70.0) 02/07/21 09:11 Seg Neutrophils # 2.3 K/mm3 (1.8-7.7) 02/07/21 09:11 Sodium 139 mmol/L (137-145) 02/07/21 09:11 Potassium 4.4 mmol/L (3.6-5.0) 02/07/21 09:11 Chloride 102.8 mmol/L (98-107) 02/07/21 09:11 Carbon Dioxide 25 mmol/L (22-30) 02/07/21 09:11 Anion Gap 16 mmol/L 02/07/21 09:11 BUN 27 mg/dL (9-20) H 02/07/21 09:11 Creatinine 1.6 mg/dL (0.8-1.3) H 02/07/21 09:11 Estimated GFR 55 ml/min 02/07/21 09:11 BUN/Creatinine Ratio 17 % 02/07/21 09:11 Glucose 83 mg/dL (75-100) 02/07/21 09:11 POC Glucose 110 mg/dL (70-105) H 02/06/21 22:27 Calcium 9.4 mg/dL (8.4-10.2) 02/07/21 09:11 Total Bilirubin 0.50 mg/dL (0.1-1.2) 02/07/21 09:11 AST 55 units/L (5-40) H 02/07/21 09:11 ALT 31 units/L (7-56) 02/07/21 09:11 Alkaline Phosphatase 56 units/L (35-129) 02/07/21 09:11 Total Protein 7.5 g/dL (6.3-8.2) 02/07/21 09:11 Albumin 3.5 g/dL (3.9-5) L 02/07/21 09:11 Albumin/Globulin Ratio 0.9 % 02/07/21 09:11 Triglycerides 69 mg/dL (2-149) 02/07/21 09:11 Cholesterol 142 mg/dL (50-199) 02/07/21 09:11 LDL Cholesterol Direct 46 mg/dL (50-130) L 02/07/21 09:11 HDL Cholesterol 77 mg/dL (40-59) H 02/07/21 09:11 Cholesterol/HDL Ratio 1.84 % 02/07/21 09:11 TSH 1.120 mlU/mL (0.270-4.200) 02/07/21 09:11 Hepatitis A IgM Ab Non-reactive (NonReactive) 02/07/21 09:11 Hep Bs Antigen Nonreactive (Negative) 02/07/21 09:11 Hep B Core IgM Ab Non-reactive (NonReactive) 02/07/21 09:11 Hepatitis C Antibody Non-reactive (NonReactive) 02/07/21 09:11 Last Vital Signs Temp 97.9 F 02/10/21 08:59 Pulse 102 H 02/10/21 08:59 Resp 18 02/10/21 08:59 BP 138/91 02/10/21 08:59 Pulse Ox 100 02/10/21 08:59
[2021-02-10] MEDS: DIVALPROEX DR 250 MG TAB PO SCH ×2 (14:12→21:17)
[2021-02-10] MEDS: QUEtiapine 100 MG TAB PO SCH (21:17)
[2021-02-10] MEDS: MIRTAZAPINE 15 MG TAB PO SCH (21:19)
[2021-02-11] MEDS: PANTOPRAZOLE 40 MG TAB PO SCH (09:36)
[2021-02-11] MEDS: DIVALPROEX DR 250 MG TAB PO SCH ×3 (09:36→21:11)
[2021-02-11] MEDS: BENZTROPINE 0.5 MG TAB PO SCH ×2 (09:36→21:13)
[2021-02-11] MEDS: ASPIRIN EC 325 MG TAB PO SCH (09:36)
[2021-02-11] MEDS: amLODIPine 10 MG TAB PO SCH (09:36)
[2021-02-11] MEDS: FLUoxetine 10 MG TAB PO SCH (09:36)
--- NOTE | 2021-02-11 10:22 | Progress Note ---
Subjective Date of service: 02/11/21 Principal diagnosis: Schizoaffective Disorder Subjective Comment: The patient was seen today, he says he's is doing better, but still a little depressed. He denies SI/HI. He also denies hallucinations of any kind. Will continue to treat and plan for a safe discharge tomorrow if no events. REVIEW OF SYSTEMS Constitutional: Negative for weight loss ENT: Negative for stridor Respiratory: Negative for cough or hemoptysis All other systems reviewed and are negative MENTAL STATUS EXAMINATION General Appearance and Behavior: Age appropriate, good hygiene, wearing appropriate clothes, calm and cooperative polite with questioning. Cooperation: engaged Psychomotor Behavior: Psychomotor normal Mood: "depressed" Affect and affective range: congruent with stated mood Thought Process: circumstantial Thought Content: depression Speech: Normal volume, Regular rate and rhythm, Suicidal Ideation: Denies Homicidal Ideation: Denies Hallucinations: Denies Delusions: None elicited Impulse Control: Unimpaired Insight and Judgment: Limited insight and poor judgment Memory: Limited Attention: attentive Orientation: alert and oriented Assessment and Plan (1) Schizoaffective Disorder Current Visit: Yes Status: Acute Treatment Plan Patient admitted for inpatient psychiatric evaluation, medication adjustment and close monitoring The patient's behavior, mood, sleep and appetite will be closely monitored. Patient enrolled in individual and group therapeutic sessions and encouraged to attend. Patient provided with a safe and structured environment. Patient's physical health needs will be addressed by the Hospitalist. Hospitalist Consulted Labs including CBC, CMP, Lipid profile and Hemoglobin A1C levels ordered for baseline reference Social Assessment will be completed and the Loans Officer will work with patient and family to ensure a suitable and safe disposition Valproic level 02/11 Medication adjustment will be made as clinically indicated Continue Prozac 30mg po daily Usual Wellness Adventist/Preservation: - Start Trazodone 50 mg po QHS & 50 mg po QHS PRN between 10 PM & 2 AM for insomnia - Start Melatonin 5 mg po QHS to promote circadian rhythm The patient agreed on the treatment plan, understood the risk, benefit, alternative treatment, potential consequence of no treatment, and gave informed consent. Estimated days: 6 Post hospital care: primary care provider, psychiatric provider Case staffed with Dr. Hernandez Medications and Allergies Allergies Allergy/AdvReac Type Severity Reaction Status Date / Time No Known Allergies Allergy Verified 02/06/21 22:53 Home Medications Medication Instructions Recorded Confirmed Last Taken Type Aripiprazole Lauroxil [Aristada] 882 mg IM QMONTH 02/07/21 02/07/21 Unknown History Aspirin EC [Ecotrin] 325 mg PO QDAY 02/07/21 02/07/21 Unknown History Atorvastatin [Lipitor Tab] 80 mg PO QHS 02/07/21 02/07/21 Unknown History Benztropine [Cogentin] 0.5 mg PO BID 02/07/21 02/07/21 Unknown History Divalproex [Mayo MACHADO] 250 mg PO BID 02/07/21 02/07/[address] [Mayo MACHADO] 500 mg PO TID 02/07/21 02/07/21 Unknown History Mirtazapine 7.5 mg PO 02/07/21 02/07/21 Unknown History OLANZapine [Zyprexa] 20 mg PO 02/07/21 02/07/21 Unknown History Pantoprazole [Protonix] 40 mg PO QDAY 02/07/21 02/07/21 Unknown History Quetiapine Fumarate [SEROquel] 300 mg PO 02/07/21 02/07/21 Unknown History amLODIPine [Norvasc] 10 mg PO DAILY 02/07/21 02/07/21 Unknown History Active Meds: Active Medications Amlodipine Besylate (Amlodipine 10 Mg Tab) 10 mg PO DAILY [facility] Last Admin: 02/11/21 09:36 Dose: 10 mg Documented by: Aspirin (Aspirin Ec 325 Mg Tab) 325 mg PO QDAY [facility] Last Admin: 02/11/21 09:36 Dose: 325 mg Documented by: Atorvastatin Calcium (Atorvastatin 40 Mg Tab) 80 mg PO QHS [facility] Last Admin: 02/10/21 21:18 Dose: 80 mg Documented by: Benztropine Mesylate (Benztropine 0.5 Mg Tab) 0.5 mg PO BID [facility] Last Admin: 02/11/21 09:36 Dose: 0.5 mg Documented by: Divalproex Sodium (Divalproex Dr 250 Mg Tab) 500 mg PO TID [facility] Last Admin: 02/11/21 09:36 Dose: 500 mg Documented by: Fluoxetine HCl (Fluoxetine 10 Mg Tab) 30 mg PO QDAY [facility] Last Admin: 02/11/21 09:36 Dose: 30 mg Documented by: Mirtazapine (Mirtazapine 15 Mg Tab) 7.5 mg PO QHS [facility] Last Admin: 02/10/21 21:19 Dose: 7.5 mg Documented by: Miscellaneous Medication (Aripiprazole Lauroxil [Aristada]) 882 mg IM QMONTH [facility] Olanzapine (Olanzapine 10 Mg Tab) 10 mg PO [facility] Last Admin: 02/10/21 21:19 Dose: 10 mg Documented by: Pantoprazole Sodium (Pantoprazole 40 Mg Tab) 40 mg PO QDAY [facility] Last Admin: 02/11/21 09:36 Dose: 40 mg Documented by: Quetiapine Fumarate (Quetiapine 100 Mg Tab) 300 mg PO [facility] Last Admin: 02/10/21 21:17 Dose: 300 mg Documented by: Trazodone HCl (Trazodone 50 Mg Tab) 50 mg PO QHS PRN PRN Reason: Insomnia Results - Results Labs/Vitals: Laboratory Last Values WBC 4.2 K/mm3 (4.5-11.0) L 02/07/21 09:11 RBC 4.95 M/mm3 (3.65-5.03) 02/07/21 09:11 Hgb 14.6 gm/dl (11.8-15.2) 02/07/21 09:11 Hct 44.8 % (35.5-45.6) 02/07/21 09:11 MCV 91 fl (84-94) 02/07/21 09:11 MCH 29 pg (28-32) 02/07/21 09:11 MCHC 33 % (32-34) 02/07/21 09:11 RDW 15.2 % (13.2-15.2) 02/07/21 09:11 Plt Count 118 K/mm3 (140-440) L 02/07/21 09:11 Lymph % (Auto) 34.0 % (13.4-35.0) 02/07/21 09:11 [place] % (Auto) 10.4 % (0.0-7.3) H 02/07/21 09:11 Eos % (Auto) 1.9 % (0.0-4.3) 02/07/21 09:11 Baso % (Auto) 0.4 % (0.0-1.8) 02/07/21 09:11 Lymph # (Auto) 1.4 K/mm3 (1.2-5.4) 02/07/21 09:11 [place] # (Auto) 0.4 K/mm3 (0.0-0.8) 02/07/21 09:11 Eos # (Auto) 0.1 K/mm3 (0.0-0.4) 02/07/21 09:11 Baso # (Auto) 0.0 K/mm3 (0.0-0.1) 02/07/21 09:11 Seg Neutrophils % 53.3 % (40.0-70.0) 02/07/21 09:11 Seg Neutrophils # 2.3 K/mm3 (1.8-7.7) 02/07/21 09:11 Sodium 139 mmol/L (137-145) 02/07/21 09:11 Potassium 4.4 mmol/L (3.6-5.0) 02/07/21 09:11 Chloride 102.8 mmol/L (98-107) 02/07/21 09:11 Carbon Dioxide 25 mmol/L (22-30) 02/07/21 09:11 Anion Gap 16 mmol/L 02/07/21 09:11 BUN 27 mg/dL (9-20) H 02/07/21 09:11 Creatinine 1.6 mg/dL (0.8-1.3) H 02/07/21 09:11 Estimated GFR 55 ml/min 02/07/21 09:11 BUN/Creatinine Ratio 17 % 02/07/21 09:11 Glucose 83 mg/dL (75-100) 02/07/21 09:11 POC Glucose 110 mg/dL (70-105) H 02/06/21 22:27 Calcium 9.4 mg/dL (8.4-10.2) 02/07/21 09:11 Total Bilirubin 0.50 mg/dL (0.1-1.2) 02/07/21 09:11 AST 55 units/L (5-40) H 02/07/21 09:11 ALT 31 units/L (7-56) 02/07/21 09:11 Alkaline Phosphatase 56 units/L (35-129) 02/07/21 09:11 Total Protein 7.5 g/dL (6.3-8.2) 02/07/21 09:11 Albumin 3.5 g/dL (3.9-5) L 02/07/21 09:11 Albumin/Globulin Ratio 0.9 % 02/07/21 09:11 Triglycerides 69 mg/dL (2-149) 02/07/21 09:11 Cholesterol 142 mg/dL (50-199) 02/07/21 09:11 LDL Cholesterol Direct 46 mg/dL (50-130) L 02/07/21 09:11 HDL Cholesterol 77 mg/dL (40-59) H 02/07/21 09:11 Cholesterol/HDL Ratio 1.84 % 02/07/21 09:11 TSH 1.120 mlU/mL (0.270-4.200) 02/07/21 09:11 Hepatitis A IgM Ab Non-reactive (NonReactive) 02/07/21 09:11 Hep Bs Antigen Nonreactive (Negative) 02/07/21 09:11 Hep B Core IgM Ab Non-reactive (NonReactive) 02/07/21 09:11 Hepatitis C Antibody Non-reactive (NonReactive) 02/07/21 09:11 Last Vital Signs Temp 97.3 F L 02/11/21 08:17 Pulse 95 H 02/11/21 09:36 Resp 20 02/11/21 08:17 BP 137/89 02/11/21 09:36 Pulse Ox 99 02/11/21 08:17
[2021-02-11] MEDS: QUEtiapine 100 MG TAB PO SCH (21:12)
[2021-02-11] MEDS: MIRTAZAPINE 15 MG TAB PO SCH (21:13)
--- NOTE | 2021-02-12 07:24 | Progress Note ---
Assessment and Plan Assessment and plan: --Hypertension; well controlled Continue current home antihypertensives And as needed hydralazine. --History of bronchial asthma; Patient is stable no shortness of breath However albuterol inhaler every 6 hours as needed for shortness of breath and wheeze --History of HIV; Resume home medications --Acute kidney injury; vasomotor nephropathy Closely monitor renal function Avoid nephrotoxins --Dyslipidemia; continue statin --DVT prophylaxis; SCDs while resting --Full CODE STATUS We will closely monitor the patient and adjust the management as needed Plan of care reviewed with the patient and his nurse` History Interval history: I have seen and examined the patient inpatient psych unit today Patient's chart and medications reviewed Patient was seen in the activity room No new complaints reported by the nursing or the patient Vital signs reviewed Hospitalist Physical - Constitutional Vitals: Temp Pulse Resp BP Pulse Ox 98.0 F 96 H 16 138/87 93 02/11/21 19:26 02/11/21 19:26 02/11/21 19:26 02/11/21 19:26 02/11/21 19:26 General appearance: Present: no acute distress, well-nourished, other (Depressed, calm and minimally communicative) - EENT Eyes: Present: PERRL, EOM intact - Neck Neck: Present: supple, normal ROM - Respiratory Respiratory effort: normal Respiratory: bilateral: diminished, negative: rales, rhonchi, wheezing - Cardiovascular Rhythm: regular Heart Sounds: Present: S1 & S2 - Abdominal General gastrointestinal: soft, non-tender, normal bowel sounds - Integumentary Integumentary: Present: clear, warm - Psychiatric Psychiatric: appropriate mood/affect, cooperative - Neurologic Neurologic: moves all extremities Results - Labs CBC & Chem 7: 02/07/21 09:11 02/14/21 09:58 Labs: Laboratory Last Values WBC 4.2 K/mm3 (4.5-11.0) L 02/07/21 09:11 RBC 4.95 M/mm3 (3.65-5.03) 02/07/21 09:11 Hgb 14.6 gm/dl (11.8-15.2) 02/07/21 09:11 Hct 44.8 % (35.5-45.6) 02/07/21 09:11 MCV 91 fl (84-94) 02/07/21 09:11 MCH 29 pg (28-32) 02/07/21 09:11 MCHC 33 % (32-34) 02/07/21 09:11 RDW 15.2 % (13.2-15.2) 02/07/21 09:11 Plt Count 118 K/mm3 (140-440) L 02/07/21 09:11 Lymph % (Auto) 34.0 % (13.4-35.0) 02/07/21 09:11 [place] % (Auto) 10.4 % (0.0-7.3) H 02/07/21 09:11 Eos % (Auto) 1.9 % (0.0-4.3) 02/07/21 09:11 Baso % (Auto) 0.4 % (0.0-1.8) 02/07/21 09:11 Lymph # (Auto) 1.4 K/mm3 (1.2-5.4) 02/07/21 09:11 [place] # (Auto) 0.4 K/mm3 (0.0-0.8) 02/07/21 09:11 Eos # (Auto) 0.1 K/mm3 (0.0-0.4) 02/07/21 09:11 Baso # (Auto) 0.0 K/mm3 (0.0-0.1) 02/07/21 09:11 Seg Neutrophils % 53.3 % (40.0-70.0) 02/07/21 09:11 Seg Neutrophils # 2.3 K/mm3 (1.8-7.7) 02/07/21 09:11 Sodium 139 mmol/L (137-145) 02/07/21 09:11 Potassium 4.4 mmol/L (3.6-5.0) 02/07/21 09:11 Chloride 102.8 mmol/L (98-107) 02/07/21 09:11 Carbon Dioxide 25 mmol/L (22-30) 02/07/21 09:11 Anion Gap 16 mmol/L 02/07/21 09:11 BUN 27 mg/dL (9-20) H 02/07/21 09:11 Creatinine 1.6 mg/dL (0.8-1.3) H 02/07/21 09:11 Estimated GFR 55 ml/min 02/07/21 09:11 BUN/Creatinine Ratio 17 % 02/07/21 09:11 Glucose 83 mg/dL (75-100) 02/07/21 09:11 POC Glucose 110 mg/dL (70-105) H 02/06/21 22:27 Calcium 9.4 mg/dL (8.4-10.2) 02/07/21 09:11 Total Bilirubin 0.50 mg/dL (0.1-1.2) 02/07/21 09:11 AST 55 units/L (5-40) H 02/07/21 09:11 ALT 31 units/L (7-56) 02/07/21 09:11 Alkaline Phosphatase 56 units/L (35-129) 02/07/21 09:11 Total Protein 7.5 g/dL (6.3-8.2) 02/07/21 09:11 Albumin 3.5 g/dL (3.9-5) L 02/07/21 09:11 Albumin/Globulin Ratio 0.9 % 02/07/21 09:11 Triglycerides 69 mg/dL (2-149) 02/07/21 09:11 Cholesterol 142 mg/dL (50-199) 02/07/21 09:11 LDL Cholesterol Direct 46 mg/dL (50-130) L 02/07/21 09:11 HDL Cholesterol 77 mg/dL (40-59) H 02/07/21 09:11 Cholesterol/HDL Ratio 1.84 % 02/07/21 09:11 TSH 1.120 mlU/mL (0.270-4.200) 02/07/21 09:11 Valproic Acid 80.9 ug/mL (50-100) 02/11/21 12:25 Hepatitis A IgM Ab Non-reactive (NonReactive) 02/07/21 09:11 Hep Bs Antigen Nonreactive (Negative) 02/07/21 09:11 Hep B Core IgM Ab Non-reactive (NonReactive) 02/07/21 09:11 Hepatitis C Antibody Non-reactive (NonReactive) 02/07/21 09:11 Nunez/IV: Voiding Method Toilet Active Medications - Current Medications Current Medications: Generic Name Dose Route Start Last Admin Trade Name Freq PRN Reason Stop Dose Admin Amlodipine Besylate 10 mg 02/07/21 11:00 02/11/21 09:36 Amlodipine 10 Mg Tab PO 10 mg DAILY HSANNON Administration Aspirin 325 mg 02/07/21 11:00 02/11/21 09:36 Aspirin Ec 325 Mg Tab PO 325 mg QDAY SHANNON Administration Atorvastatin Calcium 80 mg 02/07/21 22:00 02/11/21 21:13 Atorvastatin 40 Mg Tab PO 80 mg QHS SHANNON Administration Benztropine Mesylate 0.5 mg 02/07/21 11:00 02/11/21 21:13 Benztropine 0.5 Mg Tab PO 0.5 mg BID SHANNON Administration Divalproex Sodium 500 mg 02/10/21 14:00 02/11/21 21:[address] 250 Mg Tab PO 500 mg TID SHANNON Administration Fluoxetine HCl 30 mg 02/11/21 10:00 02/11/21 09:36 Fluoxetine 10 Mg Tab PO 30 mg QDAY SHANNON Administration Mirtazapine 7.5 mg 02/07/21 22:00 02/11/21 21:13 Mirtazapine 15 Mg Tab PO 7.5 mg QHS SHANNON Administration Miscellaneous Medication 882 mg 02/07/21 10:30 Aripiprazole Lauroxil [Aristada] IM QMONTH SHANNON Olanzapine 10 mg 02/07/21 22:00 02/11/21 21:13 Olanzapine 10 Mg Tab PO 10 mg HS SHANNON Administration Pantoprazole Sodium 40 mg 02/07/21 11:00 02/11/21 09:36 Pantoprazole 40 Mg Tab PO 40 mg QDAY SHANNON Administration Quetiapine Fumarate 300 mg 02/07/21 22:00 02/11/21 21:12 Quetiapine 100 Mg Tab PO 300 mg HS SHANNON Administration Trazodone HCl 50 mg 02/07/21 22:00 Trazodone 50 Mg Tab PO QHS PRN Insomnia
[2021-02-12] MEDS: DIVALPROEX DR 250 MG TAB PO SCH ×3 (08:51→20:44)
[2021-02-12] MEDS: BENZTROPINE 0.5 MG TAB PO SCH ×2 (09:25→21:12)
[2021-02-12] MEDS: amLODIPine 10 MG TAB PO SCH (09:25)
[2021-02-12] MEDS: PANTOPRAZOLE 40 MG TAB PO SCH (09:25)
[2021-02-12] MEDS: FLUoxetine 10 MG TAB PO SCH (09:25)
[2021-02-12] MEDS: ASPIRIN EC 325 MG TAB PO SCH (09:25)
--- NOTE | 2021-02-12 10:24 | Progress Note ---
Subjective Date of service: 02/12/21 Principal diagnosis: Schizoaffective Disorder Subjective Comment: The patient was seen today, he verbalizes being depressed. He is very quiet. He denies SI/HI or hallucinations. I spoke with the patient's brother. He says the patient is normally talkative, l oves to talk about sports and is pretty sharp. He says they lost their mother in April and the patient has had a hard time dealing with it. He says he feels that his brother needs an assistant cook living program because he will not take his meds. He says he found one, but the patient was denies and they told him he could appeal it. The patient's brother says he is concerned about the patient being discharge because he is "not the [place] he knows." REVIEW OF SYSTEMS Constitutional: Negative for weight loss ENT: Negative for stridor Respiratory: Negative for cough or hemoptysis All other systems reviewed and are negative MENTAL STATUS EXAMINATION General Appearance and Behavior: Age appropriate, good hygiene, wearing appropriate clothes, calm and cooperative polite with questioning. Cooperation: engaged Psychomotor Behavior: Psychomotor normal Mood: "depressed" Affect and affective range: congruent with stated mood Thought Process: circumstantial Thought Content: depression Speech: Normal volume, Regular rate and rhythm, Suicidal Ideation: Denies Homicidal Ideation: Denies Hallucinations: Denies Delusions: None elicited Impulse Control: Unimpaired Insight and Judgment: Limited insight and poor judgment Memory: Limited Attention: attentive Orientation: alert and oriented Assessment and Plan (1) Schizoaffective Disorder Current Visit: Yes Status: Acute Treatment Plan Patient admitted for inpatient psychiatric evaluation, medication adjustment and close monitoring The patient's behavior, mood, sleep and appetite will be closely monitored. Patient enrolled in individual and group therapeutic sessions and encouraged to attend. Patient provided with a safe and structured environment. Patient's physical health needs will be addressed by the Hospitalist. Hospitalist Consulted Labs including CBC, CMP, Lipid profile and Hemoglobin A1C levels ordered for baseline reference Social Assessment will be completed and the Leather Sorter will work with patient and family to ensure a suitable and safe disposition Valproic level 02/11 Medication adjustment will be made as clinically indicated Increase Prozac 40mg po daily Usual Wellness Yazidi/Preservation: - Start Trazodone 50 mg po QHS & 50 mg po QHS PRN between 10 PM & 2 AM for insomnia - Start Melatonin 5 mg po QHS to promote circadian rhythm The patient agreed on the treatment plan, understood the risk, benefit, alternative treatment, potential consequence of no treatment, and gave informed consent. Estimated days: 3 Post hospital care: primary care provider, psychiatric provider Case staffed with Dr. Hernandez Medications and Allergies Allergies Allergy/AdvReac Type Severity Reaction Status Date / Time No Known Allergies Allergy Verified 02/06/21 22:53 Home Medications Medication Instructions Recorded Confirmed Last Taken Type Aripiprazole Lauroxil [Aristada] 882 mg IM QMONTH 02/07/21 02/07/21 Unknown History Aspirin EC [Ecotrin] 325 mg PO QDAY 02/07/21 02/07/21 Unknown History Atorvastatin [Lipitor Tab] 80 mg PO QHS 02/07/21 02/07/21 Unknown History Benztropine [Cogentin] 0.5 mg PO BID 02/07/21 02/07/21 Unknown History Divalproex [Mayo MACHADO] 250 mg PO BID 02/07/21 02/07/[address] Jameel MACHADO] 500 mg PO TID 02/07/21 02/07/21 Unknown History Mirtazapine 7.5 mg PO HS 02/07/21 02/07/21 Unknown History OLANZapine [Zyprexa] 20 mg PO HS 02/07/21 02/07/21 Unknown History Pantoprazole [Protonix] 40 mg PO QDAY 02/07/21 02/07/21 Unknown History Quetiapine Fumarate [SEROquel] 300 mg PO HS 02/07/21 02/07/21 Unknown History amLODIPine [Norvasc] 10 mg PO DAILY 02/07/21 02/07/21 Unknown History Active Meds: Active Medications Amlodipine Besylate (Amlodipine 10 Mg Tab) 10 mg PO DAILY [facility] Last Admin: 02/12/21 09:25 Dose: 10 mg Documented by: Aspirin (Aspirin Ec 325 Mg Tab) 325 mg PO QDAY [facility] Last Admin: 02/12/21 09:25 Dose: 325 mg Documented by: Atorvastatin Calcium (Atorvastatin 40 Mg Tab) 80 mg PO QHS [facility] Last Admin: 02/11/21 21:13 Dose: 80 mg Documented by: Benztropine Mesylate (Benztropine 0.5 Mg Tab) 0.5 mg PO BID [facility] Last Admin: 02/12/21 09:25 Dose: 0.5 mg Documented by: Divalproex Sodium (Divalproex Dr 250 Mg Tab) 500 mg PO TID [facility] Last Admin: 02/12/21 08:51 Dose: 500 mg Documented by: Fluoxetine HCl (Fluoxetine 10 Mg Tab) 30 mg PO QDAY [facility] Last Admin: 02/12/21 09:25 Dose: 30 mg Documented by: Mirtazapine (Mirtazapine 15 Mg Tab) 7.5 mg PO QHS [facility] Last Admin: 02/11/21 21:13 Dose: 7.5 mg Documented by: Miscellaneous Medication (Aripiprazole Lauroxil [Aristada]) 882 mg IM QMONTH [facility] Olanzapine (Olanzapine 10 Mg Tab) 10 mg PO [facility] Last Admin: 02/11/21 21:13 Dose: 10 mg Documented by: Pantoprazole Sodium (Pantoprazole 40 Mg Tab) 40 mg PO QDAY [facility] Last Admin: 02/12/21 09:25 Dose: 40 mg Documented by: Quetiapine Fumarate (Quetiapine 100 Mg Tab) 300 mg PO [facility] Last Admin: 02/11/21 21:12 Dose: 300 mg Documented by: Trazodone HCl (Trazodone 50 Mg Tab) 50 mg PO QHS PRN PRN Reason: Insomnia Results - Results Labs/Vitals: Laboratory Last Values WBC 4.2 K/mm3 (4.5-11.0) L 02/07/21 09:11 RBC 4.95 M/mm3 (3.65-5.03) 02/07/21 09:11 Hgb 14.6 gm/dl (11.8-15.2) 02/07/21 09:11 Hct 44.8 % (35.5-45.6) 02/07/21 09:11 MCV 91 fl (84-94) 02/07/21 09:11 MCH 29 pg (28-32) 02/07/21 09:11 MCHC 33 % (32-34) 02/07/21 09:11 RDW 15.2 % (13.2-15.2) 02/07/21 09:11 Plt Count 118 K/mm3 (140-440) L 02/07/21 09:11 Lymph % (Auto) 34.0 % (13.4-35.0) 02/07/21 09:11 [place] % (Auto) 10.4 % (0.0-7.3) H 02/07/21 09:11 Eos % (Auto) 1.9 % (0.0-4.3) 02/07/21 09:11 Baso % (Auto) 0.4 % (0.0-1.8) 02/07/21 09:11 Lymph # (Auto) 1.4 K/mm3 (1.2-5.4) 02/07/21 09:11 [place] # (Auto) 0.4 K/mm3 (0.0-0.8) 02/07/21 09:11 Eos # (Auto) 0.1 K/mm3 (0.0-0.4) 02/07/21 09:11 Baso # (Auto) 0.0 K/mm3 (0.0-0.1) 02/07/21 09:11 Seg Neutrophils % 53.3 % (40.0-70.0) 02/07/21 09:11 Seg Neutrophils # 2.3 K/mm3 (1.8-7.7) 02/07/21 09:11 Sodium 139 mmol/L (137-145) 02/07/21 09:11 Potassium 4.4 mmol/L (3.6-5.0) 02/07/21 09:11 Chloride 102.8 mmol/L (98-107) 02/07/21 09:11 Carbon Dioxide 25 mmol/L (22-30) 02/07/21 09:11 Anion Gap 16 mmol/L 02/07/21 09:11 BUN 27 mg/dL (9-20) H 02/07/21 09:11 Creatinine 1.6 mg/dL (0.8-1.3) H 02/07/21 09:11 Estimated GFR 55 ml/min 02/07/21 09:11 BUN/Creatinine Ratio 17 % 02/07/21 09:11 Glucose 83 mg/dL (75-100) 02/07/21 09:11 POC Glucose 110 mg/dL (70-105) H 02/06/21 22:27 Calcium 9.4 mg/dL (8.4-10.2) 02/07/21 09:11 Total Bilirubin 0.50 mg/dL (0.1-1.2) 02/07/21 09:11 AST 55 units/L (5-40) H 02/07/21 09:11 ALT 31 units/L (7-56) 02/07/21 09:11 Alkaline Phosphatase 56 units/L (35-129) 02/07/21 09:11 Total Protein 7.5 g/dL (6.3-8.2) 02/07/21 09:11 Albumin 3.5 g/dL (3.9-5) L 02/07/21 09:11 Albumin/Globulin Ratio 0.9 % 02/07/21 09:11 Triglycerides 69 mg/dL (2-149) 02/07/21 09:11 Cholesterol 142 mg/dL (50-199) 02/07/21 09:11 LDL Cholesterol Direct 46 mg/dL (50-130) L 02/07/21 09:11 HDL Cholesterol 77 mg/dL (40-59) H 02/07/21 09:11 Cholesterol/HDL Ratio 1.84 % 02/07/21 09:11 TSH 1.120 mlU/mL (0.270-4.200) 02/07/21 09:11 Valproic Acid 80.9 ug/mL (50-100) 02/11/21 12:25 Hepatitis A IgM Ab Non-reactive (NonReactive) 02/07/21 09:11 Hep Bs Antigen Nonreactive (Negative) 02/07/21 09:11 Hep B Core IgM Ab Non-reactive (NonReactive) 02/07/21 09:11 Hepatitis C Antibody Non-reactive (NonReactive) 02/07/21 09:11 Last Vital Signs Temp 98.0 F 02/12/21 07:22 Pulse 68 02/12/21 09:25 Resp 18 02/12/21 07:22 BP 140/84 02/12/21 09:25 Pulse Ox 100 02/12/21 07:22
[2021-02-12] MEDS ORDERED: FLUoxetine 10 MG TAB PO SCH (11:00)
[2021-02-12] MEDS: QUEtiapine 100 MG TAB PO SCH (21:11)
[2021-02-12] MEDS: MIRTAZAPINE 15 MG TAB PO SCH (21:12)
[2021-02-13] MEDS: DIVALPROEX DR 250 MG TAB PO SCH ×3 (09:13→21:02)
[2021-02-13] MEDS: ASPIRIN EC 325 MG TAB PO SCH (09:13)
[2021-02-13] MEDS: amLODIPine 10 MG TAB PO SCH (09:13)
[2021-02-13] MEDS: BENZTROPINE 0.5 MG TAB PO SCH ×2 (09:13→21:03)
[2021-02-13] MEDS: FLUoxetine 20 MG CAP PO SCH (09:13)
[2021-02-13] MEDS: PANTOPRAZOLE 40 MG TAB PO SCH (09:13)
--- NOTE | 2021-02-13 10:23 | Progress Note ---
Subjective Date of service: 02/13/21 Principal diagnosis: Schizoaffective Disorder Subjective Comment: The patient was seen today, I informed him I has spoken to his brother. He was happy to hear that. He denies SI/HI. The patient verbalized being ready to go home with his family. He denies SI/HI or hallucinations. He does still endorse "depressed a little." REVIEW OF SYSTEMS Constitutional: Negative for weight loss ENT: Negative for stridor Respiratory: Negative for cough or hemoptysis All other systems reviewed and are negative MENTAL STATUS EXAMINATION General Appearance and Behavior: Age appropriate, good hygiene, wearing appropri ate clothes, calm and cooperative polite with questioning. Cooperation: engaged Psychomotor Behavior: Psychomotor normal Mood: "depressed" Affect and affective range: congruent with stated mood Thought Process: circumstantial Thought Content: depression Speech: Normal volume, Regular rate and rhythm, Suicidal Ideation: Denies Homicidal Ideation: Denies Hallucinations: Denies Delusions: None elicited Impulse Control: Unimpaired Insight and Judgment: Limited insight and poor judgment Memory: Limited Attention: attentive Orientation: alert and oriented Assessment and Plan (1) Schizoaffective Disorder Current Visit: Yes Status: Acute Treatment Plan Patient admitted for inpatient psychiatric evaluation, medication adjustment and close monitoring The patient's behavior, mood, sleep and appetite will be closely monitored. Patient enrolled in individual and group therapeutic sessions and encouraged to attend. Patient provided with a safe and structured environment. Patient's physical health needs will be addressed by the Hospitalist. Hospitalist Consulted Labs including CBC, CMP, Lipid profile and Hemoglobin A1C levels ordered for baseline reference Social Assessment will be completed and the Bilingual Office Assistant will work with patient and family to ensure a suitable and safe disposition Valproic level 8/17 - 80.9 Medication adjustment will be made as clinically indicated Increase Prozac 40mg po daily yesterday No changes today Usual Wellness Taoism/Preservation: - Start Trazodone 50 mg po QHS & 50 mg po QHS PRN between 10 PM & 2 AM for insomnia - Start Melatonin 5 mg po QHS to promote circadian rhythm The patient agreed on the treatment plan, understood the risk, benefit, alternative treatment, potential consequence of no treatment, and gave informed consent. Estimated days: 3 Post hospital care: primary care provider, psychiatric provider Case staffed with Dr. Hernandez Medications and Allergies Allergies Allergy/AdvReac Type Severity Reaction Status Date / Time No Known Allergies Allergy Verified 02/06/21 22:53 Home Medications Medication Instructions Recorded Confirmed Last Taken Type Aripiprazole Lauroxil [Aristada] 882 mg IM QMONTH 02/07/21 02/07/21 Unknown History Aspirin EC [Ecotrin] 325 mg PO QDAY 02/07/21 02/07/21 Unknown History Atorvastatin [Lipitor Tab] 80 mg PO QHS 02/07/21 02/07/21 Unknown History Benztropine [Cogentin] 0.5 mg PO BID 02/07/21 02/07/21 Unknown History Divalproex [Mayo MACHADO] 250 mg PO BID 02/07/21 02/07/21 Unknown History Divalproex [Mayo MACHADO] 500 mg PO TID 02/07/21 02/07/21 Unknown History Mirtazapine 7.5 mg PO HS 02/07/21 02/07/21 Unknown History OLANZapine [Zyprexa] 20 mg PO HS 02/07/21 02/07/21 Unknown History Pantoprazole [Protonix] 40 mg PO QDAY 02/07/21 02/07/21 Unknown History Quetiapine Fumarate [SEROquel] 300 mg PO HS 02/07/21 02/07/21 Unknown History amLODIPine [Norvasc] 10 mg PO DAILY 02/07/21 02/07/21 Unknown History Active Meds: Active Medications Amlodipine Besylate (Amlodipine 10 Mg Tab) 10 mg PO DAILY [facility] Last Admin: 02/13/21 09:13 Dose: 10 mg Documented by: Aspirin (Aspirin Ec 325 Mg Tab) 325 mg PO QDAY [facility] Last Admin: 02/13/21 09:13 Dose: 325 mg Documented by: Atorvastatin Calcium (Atorvastatin 40 Mg Tab) 80 mg PO QHS [facility] Last Admin: 02/12/21 21:12 Dose: 80 mg Documented by: Benztropine Mesylate (Benztropine 0.5 Mg Tab) 0.5 mg PO BID [facility] Last Admin: 02/13/21 09:13 Dose: 0.5 mg Documented by: Divalproex Sodium (Divalproex Dr 250 Mg Tab) 500 mg PO TID [facility] Last Admin: 02/13/21 09:13 Dose: 500 mg Documented by: Fluoxetine HCl (Fluoxetine 20 Mg Cap) 40 mg PO QDAY [facility] Last Admin: 02/13/21 09:13 Dose: 40 mg Documented by: Mirtazapine (Mirtazapine 15 Mg Tab) 7.5 mg PO QHS [facility] Last Admin: 02/12/21 21:12 Dose: 7.5 mg Documented by: Miscellaneous Medication (Aripiprazole Lauroxil [Aristada]) 882 mg IM QMONTH [facility] Olanzapine (Olanzapine 10 Mg Tab) 10 mg PO [facility] Last Admin: 02/12/21 21:12 Dose: 10 mg Documented by: Pantoprazole Sodium (Pantoprazole 40 Mg Tab) 40 mg PO QDAY [facility] Last Admin: 02/13/21 09:13 Dose: 40 mg Documented by: Quetiapine Fumarate (Quetiapine 100 Mg Tab) 300 mg PO [facility] Last Admin: 02/12/21 21:11 Dose: 300 mg Documented by: Trazodone HCl (Trazodone 50 Mg Tab) 50 mg PO QHS PRN PRN Reason: Insomnia Results - Results Labs/Vitals: Laboratory Last Values WBC 4.2 K/mm3 (4.5-11.0) L 02/07/21 09:11 RBC 4.95 M/mm3 (3.65-5.03) 02/07/21 09:11 Hgb 14.6 gm/dl (11.8-15.2) 02/07/21 09:11 Hct 44.8 % (35.5-45.6) 02/07/21 09:11 MCV 91 fl (84-94) 02/07/21 09:11 MCH 29 pg (28-32) 02/07/21 09:11 MCHC 33 % (32-34) 02/07/21 09:11 RDW 15.2 % (13.2-15.2) 02/07/21 09:11 Plt Count 118 K/mm3 (140-440) L 02/07/21 09:11 Lymph % (Auto) 34.0 % (13.4-35.0) 02/07/21 09:11 [place] % (Auto) 10.4 % (0.0-7.3) H 02/07/21 09:11 Eos % (Auto) 1.9 % (0.0-4.3) 02/07/21 09:11 Baso % (Auto) 0.4 % (0.0-1.8) 02/07/21 09:11 Lymph # (Auto) 1.4 K/mm3 (1.2-5.4) 02/07/21 09:11 [place] # (Auto) 0.4 K/mm3 (0.0-0.8) 02/07/21 09:11 Eos # (Auto) 0.1 K/mm3 (0.0-0.4) 02/07/21 09:11 Baso # (Auto) 0.0 K/mm3 (0.0-0.1) 02/07/21 09:11 Seg Neutrophils % 53.3 % (40.0-70.0) 02/07/21 09:11 Seg Neutrophils # 2.3 K/mm3 (1.8-7.7) 02/07/21 09:11 Sodium 139 mmol/L (137-145) 02/07/21 09:11 Potassium 4.4 mmol/L (3.6-5.0) 02/07/21 09:11 Chloride 102.8 mmol/L (98-107) 02/07/21 09:11 Carbon Dioxide 25 mmol/L (22-30) 02/07/21 09:11 Anion Gap 16 mmol/L 02/07/21 09:11 BUN 27 mg/dL (9-20) H 02/07/21 09:11 Creatinine 1.6 mg/dL (0.8-1.3) H 02/07/21 09:11 Estimated GFR 55 ml/min 02/07/21 09:11 BUN/Creatinine Ratio 17 % 02/07/21 09:11 Glucose 83 mg/dL (75-100) 02/07/21 09:11 POC Glucose 110 mg/dL (70-105) H 02/06/21 22:27 Calcium 9.4 mg/dL (8.4-10.2) 02/07/21 09:11 Total Bilirubin 0.50 mg/dL (0.1-1.2) 02/07/21 09:11 AST 55 units/L (5-40) H 02/07/21 09:11 ALT 31 units/L (7-56) 02/07/21 09:11 Alkaline Phosphatase 56 units/L (35-129) 02/07/21 09:11 Total Protein 7.5 g/dL (6.3-8.2) 02/07/21 09:11 Albumin 3.5 g/dL (3.9-5) L 02/07/21 09:11 Albumin/Globulin Ratio 0.9 % 02/07/21 09:11 Triglycerides 69 mg/dL (2-149) 02/07/21 09:11 Cholesterol 142 mg/dL (50-199) 02/07/21 09:11 LDL Cholesterol Direct 46 mg/dL (50-130) L 02/07/21 09:11 HDL Cholesterol 77 mg/dL (40-59) H 02/07/21 09:11 Cholesterol/HDL Ratio 1.84 % 02/07/21 09:11 TSH 1.120 mlU/mL (0.270-4.200) 02/07/21 09:11 Valproic Acid 80.9 ug/mL (50-100) 02/11/21 12:25 Hepatitis A IgM Ab Non-reactive (NonReactive) 02/07/21 09:11 Hep Bs Antigen Nonreactive (Negative) 02/07/21 09:11 Hep B Core IgM Ab Non-reactive (NonReactive) 02/07/21 09:11 Hepatitis C Antibody Non-reactive (NonReactive) 02/07/21 09:11 Last Vital Signs Temp 98.1 F 02/12/21 19:48 Pulse 98 H 02/13/21 09:13 Resp 18 02/12/21 19:48 BP 130/98 02/13/21 09:13 Pulse Ox 100 02/12/21 19:48
[2021-02-13] MEDS: MIRTAZAPINE 15 MG TAB PO SCH (21:06)
[2021-02-13] MEDS: QUEtiapine 100 MG TAB PO SCH (21:07)
--- NOTE | 2021-02-14 08:47 | Progress Note ---
Subjective Date of service: 02/14/21 Principal diagnosis: Schizoaffective Disorder Subjective Comment: The patient was seen eating breakfast, he states he is doing well. The patient states mood as "good." He reports sleep and appetite as good. He denies any current suicidal/homicidal ideation and denies hallucinations. per nurse, the patient had a quiet night. No changes made today. REVIEW OF SYSTEMS Constitutional: Negative for weight loss ENT: Negative for stridor Respiratory: Negative for cough or hemoptysis All other systems reviewed and are negative MENTAL STATUS EXAMINATION General Appearance and Behavior: Age appropriate, good hygiene, wearing appropriate clothes, calm and cooperative polite with questioning. Cooperation: engaged Psychomotor Behavior: Psychomotor normal Mood: "good" Affect and affective range: congruent with stated mood Thought Process: Goal directed Thought Content: No SI Speech: Normal volume, Regular rate and rhythm, Suicidal Ideation: Denies Homicidal Ideation: Denies Hallucinations: Denies Delusions: None elicited Impulse Control: Unimpaired Insight and Judgment: Limited insight and poor judgment Memory: Limited Attention: attentive Orientation: alert and oriented Assessment and Plan (1) Schizoaffective Disorder Current Visit: Yes Status: Acute Treatment Plan Patient admitted for inpatient psychiatric evaluation, medication adjustment and close monitoring The patient's behavior, mood, sleep and appetite will be closely monitored. Patient enrolled in individual and group therapeutic sessions and encouraged to attend. Patient provided with a safe and structured environment. Patient's physical health needs will be addressed by the Hospitalist. Hospi talist Consulted Labs including CBC, CMP, Lipid profile and Hemoglobin A1C levels ordered for baseline reference Social Assessment will be completed and the Supervisor [employer] will work with patient and family to ensure a suitable and safe disposition Valproic level 8/17 - 80.9 Medication adjustment will be made as clinically indicated Continue Prozac 40mg po daily yesterday No changes today Usual Wellness Rastafarian/Preservation: - Start Trazodone 50 mg po QHS & 50 mg po QHS PRN between 10 PM & 2 AM for insomnia - Start Melatonin 5 mg po QHS to promote circadian rhythm The patient agreed on the treatment plan, understood the risk, benefit, alternative treatment, potential consequence of no treatment, and gave informed consent. Estimated days: 3 Post hospital care: primary care provider, psychiatric provider Case staffed with Dr. Hernandez Medications and Allergies Medications and Allergies Allergies Allergy/AdvReac Type Severity Reaction Status Date / Time No Known Allergies Allergy Verified 02/06/21 22:53 Home Medications Medication Instructions Recorded Confirmed Last Taken Type Aripiprazole Lauroxil [Aristada] 882 mg IM QMONTH 02/07/21 02/07/21 Unknown History Aspirin EC [Ecotrin] 325 mg PO QDAY 02/07/21 02/07/21 Unknown History Atorvastatin [Lipitor Tab] 80 mg PO QHS 02/07/21 02/07/21 Unknown History Benztropine [Cogentin] 0.5 mg PO BID 02/07/21 02/07/21 Unknown History Divalproex [Mayo MACHADO] 250 mg PO BID 02/07/21 02/07/21 Unknown History Divalproex [Mayo MACHADO] 500 mg PO TID 02/07/21 02/07/21 Unknown History Mirtazapine 7.5 mg PO HS 02/07/21 02/07/21 Unknown History OLANZapine [Zyprexa] 20 mg PO HS 02/07/21 02/07/21 Unknown History Pantoprazole [Protonix] 40 mg PO QDAY 02/07/21 02/07/21 Unknown History Quetiapine Fumarate [SEROquel] 300 mg PO HS 02/07/21 02/07/21 Unknown History amLODIPine [Norvasc] 10 mg PO DAILY 02/07/21 02/07/21 Unknown History Active Meds: Active Medications Amlodipine Besylate (Amlodipine 10 Mg Tab) 10 mg PO DAILY [facility] Last Admin: 02/13/21 09:13 Dose: 10 mg Documented by: Aspirin (Aspirin Ec 325 Mg Tab) 325 mg PO QDAY [facility] Last Admin: 02/13/21 09:13 Dose: 325 mg Documented by: Atorvastatin Calcium (Atorvastatin 40 Mg Tab) 80 mg PO QHS [facility] Last Admin: 02/13/21 21:03 Dose: 80 mg Documented by: Benztropine Mesylate (Benztropine 0.5 Mg Tab) 0.5 mg PO BID [facility] Last Admin: 02/13/21 21:03 Dose: 0.5 mg Documented by: Divalproex Sodium (Divalproex Dr 250 Mg Tab) 500 mg PO TID [facility] Last Admin: 02/13/21 21:02 Dose: 500 mg Documented by: Fluoxetine HCl (Fluoxetine 20 Mg Cap) 40 mg PO QDAY [facility] Last Admin: 02/13/21 09:13 Dose: 40 mg Documented by: Mirtazapine (Mirtazapine 15 Mg Tab) 7.5 mg PO QHS [facility] Last Admin: 02/13/21 21:06 Dose: 7.5 mg Documented by: Miscellaneous Medication (Aripiprazole Lauroxil [Aristada]) 882 mg IM QMONTH [facility] Olanzapine (Olanzapine 10 Mg Tab) 10 mg PO [facility] Last Admin: 02/13/21 21:07 Dose: 10 mg Documented by: Pantoprazole Sodium (Pantoprazole 40 Mg Tab) 40 mg PO QDAY [facility] Last Admin: 02/13/21 09:13 Dose: 40 mg Documented by: Quetiapine Fumarate (Quetiapine 100 Mg Tab) 300 mg PO [facility] Last Admin: 02/13/21 21:07 Dose: 300 mg Documented by: Trazodone HCl (Trazodone 50 Mg Tab) 50 mg PO QHS PRN PRN Reason: Insomnia Results - Results Labs/Vitals: Laboratory Last Values WBC 4.2 K/mm3 (4.5-11.0) L 02/07/21 09:11 RBC 4.95 M/mm3 (3.65-5.03) 02/07/21 09:11 Hgb 14.6 gm/dl (11.8-15.2) 02/07/21 09:11 Hct 44.8 % (35.5-45.6) 02/07/21 09:11 MCV 91 fl (84-94) 02/07/21 09:11 MCH 29 pg (28-32) 02/07/21 09:11 MCHC 33 % (32-34) 02/07/21 09:11 RDW 15.2 % (13.2-15.2) 02/07/21 09:11 Plt Count 118 K/mm3 (140-440) L 02/07/21 09:11 Lymph % (Auto) 34.0 % (13.4-35.0) 02/07/21 09:11 [place] % (Auto) 10.4 % (0.0-7.3) H 02/07/21 09:11 Eos % (Auto) 1.9 % (0.0-4.3) 02/07/21 09:11 Baso % (Auto) 0.4 % (0.0-1.8) 02/07/21 09:11 Lymph # (Auto) 1.4 K/mm3 (1.2-5.4) 02/07/21 09:11 [place] # (Auto) 0.4 K/mm3 (0.0-0.8) 02/07/21 09:11 Eos # (Auto) 0.1 K/mm3 (0.0-0.4) 02/07/21 09:11 Baso # (Auto) 0.0 K/mm3 (0.0-0.1) 02/07/21 09:11 Seg Neutrophils % 53.3 % (40.0-70.0) 02/07/21 09:11 Seg Neutrophils # 2.3 K/mm3 (1.8-7.7) 02/07/21 09:11 Sodium 139 mmol/L (137-145) 02/07/21 09:11 Potassium 4.4 mmol/L (3.6-5.0) 02/07/21 09:11 Chloride 102.8 mmol/L (98-107) 02/07/21 09:11 Carbon Dioxide 25 mmol/L (22-30) 02/07/21 09:11 Anion Gap 16 mmol/L 02/07/21 09:11 BUN 27 mg/dL (9-20) H 02/07/21 09:11 Creatinine 1.6 mg/dL (0.8-1.3) H 02/07/21 09:11 Estimated GFR 55 ml/min 02/07/21 09:11 BUN/Creatinine Ratio 17 % 02/07/21 09:11 Glucose 83 mg/dL (75-100) 02/07/21 09:11 POC Glucose 110 mg/dL (70-105) H 02/06/21 22:27 Calcium 9.4 mg/dL (8.4-10.2) 02/07/21 09:11 Total Bilirubin 0.50 mg/dL (0.1-1.2) 02/07/21 09:11 AST 55 units/L (5-40) H 02/07/21 09:11 ALT 31 units/L (7-56) 02/07/21 09:11 Alkaline Phosphatase 56 units/L (35-129) 02/07/21 09:11 Total Protein 7.5 g/dL (6.3-8.2) 02/07/21 09:11 Albumin 3.5 g/dL (3.9-5) L 02/07/21 09:11 Albumin/Globulin Ratio 0.9 % 02/07/21 09:11 Triglycerides 69 mg/dL (2-149) 02/07/21 09:11 Cholesterol 142 mg/dL (50-199) 02/07/21 09:11 LDL Cholesterol Direct 46 mg/dL (50-130) L 02/07/21 09:11 HDL Cholesterol 77 mg/dL (40-59) H 02/07/21 09:11 Cholesterol/HDL Ratio 1.84 % 02/07/21 09:11 TSH 1.120 mlU/mL (0.270-4.200) 02/07/21 09:11 Valproic Acid 80.9 ug/mL (50-100) 02/11/21 12:25 Hepatitis A IgM Ab Non-reactive (NonReactive) 02/07/21 09:11 Hep Bs Antigen Nonreactive (Negative) 02/07/21 09:11 Hep B Core IgM Ab Non-reactive (NonReactive) 02/07/21 09:11 Hepatitis C Antibody Non-reactive (NonReactive) 02/07/21 09:11 Last Vital Signs Temp 98.0 F 02/13/21 19:21 Pulse 83 02/13/21 19:21 Resp 16 02/13/21 19:21 BP 149/82 02/13/21 19:21 Pulse Ox 89 02/13/21 19:21
[2021-02-14] MEDS: ASPIRIN EC 325 MG TAB PO SCH (09:30)
[2021-02-14] MEDS: DIVALPROEX DR 250 MG TAB PO SCH ×2 (09:30→14:05)
[2021-02-14] MEDS: FLUoxetine 20 MG CAP PO SCH (09:30)
[2021-02-14] MEDS: amLODIPine 10 MG TAB PO SCH (09:30)
[2021-02-14] MEDS: PANTOPRAZOLE 40 MG TAB PO SCH (09:30)
[2021-02-14] MEDS: BENZTROPINE 0.5 MG TAB PO SCH ×2 (09:31→21:22)
[2021-02-14] MEDS: DIVALPROEX DR 500 MG TAB PO SCH (20:17)
[2021-02-14] MEDS: QUEtiapine 100 MG TAB PO SCH (21:22)
[2021-02-14] MEDS: MIRTAZAPINE 15 MG TAB PO SCH (21:22)
--- NOTE | 2021-02-15 08:30 | Progress Note ---
Subjective Principal diagnosis: Schizoaffective Disorder Subjective Comment: 02/14/2021: The patient was seen eating breakfast, he states he is doing well. The patient states mood as "good." He reports sleep and appetite as good. He denies any current suicidal/homicidal ideation and denies hallucinations. per nurse, the patient had a quiet night. No changes made today. 02/15/2021: The patient was seen in the activity room awaiting breakfast. He continues to have somatic complains. He reports sleep as poor and appetite as good. The patient denies any current suicidal/ homicidal ideation and denies hallucinations. Per nurse "overnight the pt rested quietly, presents as sleeping for approximately 9hrs, no distress noted, will continue to monitor for safety. " No changes made today. REVIEW OF SYSTEMS Constitutional: Negative for weight loss ENT: Negative for stridor Respiratory: Negative for cough or hemoptysis All other systems reviewed and are negative MENTAL STATUS EXAMINATION General Appearance and Behavior: Age appropriate, good hygiene, wearing appropriate clothes, calm and cooperative polite with questioning. Cooperation: engaged Psychomotor Behavior: Psychomotor normal Mood: "ok" Affect and affective range: congruent with stated mood Thought Process: Goal directed Thought Content: No SI Speech: Normal volume, Regular rate and rhythm, Suicidal Ideation: Denies Homicidal Ideation: Denies Hallucinations: Denies Delusions: None elicited Impulse Control: Unimpaired Insight and Judgment: Limited insight and poor judgment Memory: Limited Attention: attentive Orientation: alert and oriented Assessment and Plan (1) Schizoaffective Disorder Current Visit: Yes Status: Acute Treatment Plan Patient admitted for inpatient psychiatric evaluation, medication adjustment and close monitoring The patient's behavior, mood, sleep and appetite will be closely monitored. Patient enrolled in individual and group therapeutic sessions and encouraged to attend. Patient provided with a safe and structured environment. Patient's physical health needs will be addressed by the Hospitalist. H ospitalist Consulted Labs including CBC, CMP, Lipid profile and Hemoglobin A1C levels ordered for baseline reference Social Assessment will be completed and the Clarity Developer will work with patient and family to ensure a suitable and safe disposition Valproic level 02/11 - 80.9 Medication adjustment will be made as clinically indicated Continue Prozac 40mg po daily yesterday No changes today Usual Wellness Pentecostalism/Preservation: - Start Trazodone 50 mg po QHS & 50 mg po QHS PRN between 10 PM & 2 AM for insomnia - Start Melatonin 5 mg po QHS to promote circadian rhythm The patient agreed on the treatment plan, understood the risk, benefit, alternative treatment, potential consequence of no treatment, and gave informed consent. Estimated days: 3 Post hospital care: primary care provider, psychiatric provider Case staffed with Dr. Hernandez Medications and Allergies Medications and Allergies Allergies Allergy/AdvReac Type Severity Reaction Status Date / Time No Known Allergies Allergy Verified 02/06/21 22:53 Home Medications Medication Instructions Recorded Confirmed Last Taken Type Aripiprazole Lauroxil [Aristada] 882 mg IM QMONTH 02/07/21 02/07/21 Unknown History Aspirin EC [Ecotrin] 325 mg PO QDAY 02/07/21 02/07/21 Unknown History Atorvastatin [Lipitor Tab] 80 mg PO QHS 02/07/21 02/07/21 Unknown History Benztropine [Cogentin] 0.5 mg PO BID 02/07/21 02/07/21 Unknown History Divalproex [Mayo MACHADO] 250 mg PO BID 02/07/21 02/07/[address] Jameel MACHADO] 500 mg PO TID 02/07/21 02/07/21 Unknown History Mirtazapine 7.5 mg PO HS 02/07/21 02/07/21 Unknown History OLANZapine [Zyprexa] 20 mg PO HS 02/07/21 02/07/21 Unknown History Pantoprazole [Protonix] 40 mg PO QDAY 02/07/21 02/07/21 Unknown History Quetiapine Fumarate [SEROquel] 300 mg PO HS 02/07/21 02/07/21 Unknown History amLODIPine [Norvasc] 10 mg PO DAILY 02/07/21 02/07/21 Unknown History Active Meds: Active Medications Amlodipine Besylate (Amlodipine 10 Mg Tab) 10 mg PO DAILY [facility] Last Admin: 02/14/21 09:30 Dose: 10 mg Documented by: Aspirin (Aspirin Ec 325 Mg Tab) 325 mg PO QDAY [facility] Last Admin: 02/14/21 09:30 Dose: 325 mg Documented by: Atorvastatin Calcium (Atorvastatin 40 Mg Tab) 80 mg PO QHS [facility] Last Admin: 02/14/21 21:22 Dose: 80 mg Documented by: Benztropine Mesylate (Benztropine 0.5 Mg Tab) 0.5 mg PO BID [facility] Last Admin: 02/14/21 21:22 Dose: 0.5 mg Documented by: Divalproex Sodium (Divalproex Dr 500 Mg Tab) 500 mg PO TID [facility] Last Admin: 02/14/21 20:17 Dose: 500 mg Documented by: Fluoxetine HCl (Fluoxetine 20 Mg Cap) 40 mg PO QDAY [facility] Last Admin: 02/14/21 09:30 Dose: 40 mg Documented by: Mirtazapine (Mirtazapine 15 Mg Tab) 7.5 mg PO QHS [facility] Last Admin: 02/14/21 21:22 Dose: 7.5 mg Documented by: Miscellaneous Medication (Aripiprazole Lauroxil [Aristada]) 882 mg IM QMONTH [facility] Olanzapine (Olanzapine 10 Mg Tab) 10 mg PO [facility] Last Admin: 02/14/21 21:22 Dose: 10 mg Documented by: Pantoprazole Sodium (Pantoprazole 40 Mg Tab) 40 mg PO QDAY [facility] Last Admin: 02/14/21 09:30 Dose: 40 mg Documented by: Quetiapine Fumarate (Quetiapine 100 Mg Tab) 300 mg PO [facility] Last Admin: 02/14/21 21:22 Dose: 300 mg Documented by: Trazodone HCl (Trazodone 50 Mg Tab) 50 mg PO QHS PRN PRN Reason: Insomnia Results - Results Labs/Vitals: Laboratory Last Values WBC 4.2 K/mm3 (4.5-11.0) L 02/07/21 09:11 RBC 4.95 M/mm3 (3.65-5.03) 02/07/21 09:11 Hgb 14.6 gm/dl (11.8-15.2) 02/07/21 09:11 Hct 44.8 % (35.5-45.6) 02/07/21 09:11 MCV 91 fl (84-94) 02/07/21 09:11 MCH 29 pg (28-32) 02/07/21 09:11 MCHC 33 % (32-34) 02/07/21 09:11 RDW 15.2 % (13.2-15.2) 02/07/21 09:11 Plt Count 118 K/mm3 (140-440) L 02/07/21 09:11 Lymph % (Auto) 34.0 % (13.4-35.0) 02/07/21 09:11 [place] % (Auto) 10.4 % (0.0-7.3) H 02/07/21 09:11 Eos % (Auto) 1.9 % (0.0-4.3) 02/07/21 09:11 Baso % (Auto) 0.4 % (0.0-1.8) 02/07/21 09:11 Lymph # (Auto) 1.4 K/mm3 (1.2-5.4) 02/07/21 09:11 [place] # (Auto) 0.4 K/mm3 (0.0-0.8) 02/07/21 09:11 Eos # (Auto) 0.1 K/mm3 (0.0-0.4) 02/07/21 09:11 Baso # (Auto) 0.0 K/mm3 (0.0-0.1) 02/07/21 09:11 Seg Neutrophils % 53.3 % (40.0-70.0) 02/07/21 09:11 Seg Neutrophils # 2.3 K/mm3 (1.8-7.7) 02/07/21 09:11 Sodium 139 mmol/L (137-145) 02/07/21 09:11 Potassium 4.4 mmol/L (3.6-5.0) 02/07/21 09:11 Chloride 102.8 mmol/L (98-107) 02/07/21 09:11 Carbon Dioxide 25 mmol/L (22-30) 02/07/21 09:11 Anion Gap 16 mmol/L 02/07/21 09:11 BUN 27 mg/dL (9-20) H 02/07/21 09:11 Creatinine 1.6 mg/dL (0.8-1.3) H 02/14/21 09:58 Estimated GFR 55 ml/min 02/14/21 09:58 BUN/Creatinine Ratio 17 % 02/07/21 09:11 Glucose 83 mg/dL (75-100) 02/07/21 09:11 POC Glucose 110 mg/dL (70-105) H 02/06/21 22:27 Calcium 9.4 mg/dL (8.4-10.2) 02/07/21 09:11 Total Bilirubin 0.50 mg/dL (0.1-1.2) 02/07/21 09:11 AST 55 units/L (5-40) H 02/07/21 09:11 ALT 31 units/L (7-56) 02/07/21 09:11 Alkaline Phosphatase 56 units/L (35-129) 02/07/21 09:11 Total Protein 7.5 g/dL (6.3-8.2) 02/07/21 09:11 Albumin 3.5 g/dL (3.9-5) L 02/07/21 09:11 Albumin/Globulin Ratio 0.9 % 02/07/21 09:11 Triglycerides 69 mg/dL (2-149) 02/07/21 09:11 Cholesterol 142 mg/dL (50-199) 02/07/21 09:11 LDL Cholesterol Direct 46 mg/dL (50-130) L 02/07/21 09:11 HDL Cholesterol 77 mg/dL (40-59) H 02/07/21 09:11 Cholesterol/HDL Ratio 1.84 % 02/07/21 09:11 TSH 1.120 mlU/mL (0.270-4.200) 02/07/21 09:11 Valproic Acid 80.9 ug/mL (50-100) 02/11/21 12:25 Hepatitis A IgM Ab Non-reactive (NonReactive) 02/07/21 09:11 Hep Bs Antigen Nonreactive (Negative) 02/07/21 09:11 Hep B Core IgM Ab Non-reactive (NonReactive) 02/07/21 09:11 Hepatitis C Antibody Non-reactive (NonReactive) 02/07/21 09:11 Last Vital Signs Temp 98.4 F 02/15/21 07:36 Pulse 94 H 02/15/21 07:36 Resp 20 02/15/21 07:36 BP 128/79 02/15/21 07:36 Pulse Ox 100 02/15/21 07:36
[2021-02-15] MEDS: DIVALPROEX DR 500 MG TAB PO SCH ×3 (08:57→20:26)
[2021-02-15] MEDS: ASPIRIN EC 325 MG TAB PO SCH (09:00)
[2021-02-15] MEDS: PANTOPRAZOLE 40 MG TAB PO SCH (09:00)
[2021-02-15] MEDS: amLODIPine 10 MG TAB PO SCH (09:00)
[2021-02-15] MEDS: BENZTROPINE 0.5 MG TAB PO SCH ×2 (09:00→21:30)
[2021-02-15] MEDS: FLUoxetine 20 MG CAP PO SCH (09:00)
[2021-02-15] MEDS: MIRTAZAPINE 15 MG TAB PO SCH (21:29)
[2021-02-15] MEDS: QUEtiapine 100 MG TAB PO SCH (21:29)
--- NOTE | 2021-02-16 08:21 | Progress Note ---
Subjective Date of service: 02/16/21 Principal diagnosis: Schizoaffective Disorder Subjective Comment: Subjective Principal diagnosis: Schizoaffective Disorder Subjective Comment: 02/14/2021: The patient was seen eating breakfast, he states he is doing well. The patient states mood as "good." He reports sleep and appetite as good. He denies any current suicidal/homicidal ideation and denies hallucinations. per nurse, the patient had a quiet night. No changes made today. 02/15/2021: The patient was seen in the activity room awaiting breakfast. He reports sleep as poor and appetite as good. The patient denies any current suicidal/ homicidal ideation and denies hallucinations. Per nurse "overnight the pt rested quietly, presents as sleeping for approximately 9hrs, no distress noted, will continue to monitor for safety. " No changes made today. 02/16/2021: The patient was seen eating breakfast , he reports doing well. He reports sleep and appetite as good. He denies any current suicidal/homicidal ideation and denies hallucinations. per nurse, the patient had a quiet night. No changes made today. REVIEW OF SYSTEMS Constitutional: Negative for weight loss ENT: Negative for stridor Respiratory: Negative for cough or hemoptysis All other systems reviewed and are negative MENTAL STATUS EXAMINATION General Appearance and Behavior: Age appropriate, good hygiene, wearing appropriate clothes, calm and cooperative polite with questioning. Cooperation: engaged Psychomotor Behavior: Psychomotor normal Mood: "ok" Affect and affective range: congruent with stated mood Thought Process: Goal directed Thought Content: No SI Speech: Normal volume, Regular rate and rhythm, Suicidal Ideation: Denies Homicidal Ideation: Denies Hallucinations: Denies Delusions: None elicited Impulse Control: Unimpaired Insight and Judgment: Limited insight and poor judgment Memory: Limited Attention: attentive Orientation: alert and oriented Assessment and Plan (1) Schizoaffective Disorder Current Visit: Yes Status: Acute Treatment Plan Patient admitted for inpatient psychiatric evaluation, medication adjustment and close monitoring The patient's behavior, mood, sleep and appetite will be closely monitored. Patient enrolled in individual and group therapeutic sessions and encouraged to attend. Patient provided with a safe and structured environment. Patient's physical health needs will be addressed by the Hospitalist. Hospitalist Consulted Labs including CBC, CMP, Lipid profile and Hemoglobin A1C levels ordered for baseline reference Social Assessment will be completed and the Whipped Topping Mixer will work with patient and family to ensure a suitable and safe disposition Valproic level /17 - 80.9 Medication adjustment will be made as clinically indicated Continue Prozac 40mg po daily yesterday No changes today Usual Wellness Temple/Preservation: - Start Trazodone 50 mg po QHS & 50 mg po QHS PRN between 10 PM & 2 AM for insomnia - Start Melatonin 5 mg po QHS to promote circadian rhythm The patient agreed on the treatment plan, understood the risk, benefit, alternative treatment, potential consequence of no treatment, and gave informed consent. Estimated days: 3 Post hospital care: primary care provider, psychiatric provider Case staffed with Dr. Hernandez Medications and Allergies Medications and Allergies Allergies Allergy/AdvReac Type Severity Reaction Status Date / Time No Known Allergies Allergy Verified 02/06/21 22:53 Home Medications Medication Instructions Recorded Confirmed Last Taken Type Aripiprazole Lauroxil [Aristada] 882 mg IM QMONTH 02/07/21 02/07/21 Unknown History Aspirin EC [Ecotrin] 325 mg PO QDAY 02/07/21 02/07/21 Unknown History Atorvastatin [Lipitor Tab] 80 mg PO QHS 02/07/21 02/07/21 Unknown History Benztropine [Cogentin] 0.5 mg PO BID 02/07/21 02/07/[address] Jameel MACHADO] 250 mg PO BID 02/07/21 02/07/[address] Jameel MACHADO] 500 mg PO TID 02/07/21 02/07/21 Unknown History Mirtazapine 7.5 mg PO HS 02/07/21 02/07/21 Unknown History OLANZapine [Zyprexa] 20 mg PO HS 02/07/21 02/07/21 Unknown History Pantoprazole [Protonix] 40 mg PO QDAY 02/07/21 02/07/21 Unknown History Quetiapine Fumarate [SEROquel] 300 mg PO HS 02/07/21 02/07/21 Unknown History amLODIPine [Norvasc] 10 mg PO DAILY 02/07/21 02/07/21 Unknown History Active Meds: Active Medications Amlodipine Besylate (Amlodipine 10 Mg Tab) 10 mg PO DAILY [facility] Last Admin: 02/15/21 09:00 Dose: 10 mg Documented by: Aspirin (Aspirin Ec 325 Mg Tab) 325 mg PO QDAY [facility] Last Admin: 02/15/21 09:00 Dose: 325 mg Documented by: Atorvastatin Calcium (Atorvastatin 40 Mg Tab) 80 mg PO QHS [facility] Last Admin: 02/15/21 21:28 Dose: 80 mg Documented by: Benztropine Mesylate (Benztropine 0.5 Mg Tab) 0.5 mg PO BID [facility] Last Admin: 02/15/21 21:30 Dose: 0.5 mg Documented by: Divalproex Sodium (Divalproex Dr 500 Mg Tab) 500 mg PO TID [facility] Last Admin: 02/15/21 20:26 Dose: 500 mg Documented by: Fluoxetine HCl (Fluoxetine 20 Mg Cap) 40 mg PO QDAY [facility] Last Admin: 02/15/21 09:00 Dose: 40 mg Documented by: Mirtazapine (Mirtazapine 15 Mg Tab) 7.5 mg PO QHS [facility] Last Admin: 02/15/21 21:29 Dose: 7.5 mg Documented by: Miscellaneous Medication (Aripiprazole Lauroxil [Aristada]) 882 mg IM QMONTH [facility] Olanzapine (Olanzapine 10 Mg Tab) 10 mg PO [facility] Last Admin: 02/15/21 21:29 Dose: 10 mg Documented by: Pantoprazole Sodium (Pantoprazole 40 Mg Tab) 40 mg PO QDAY [facility] Last Admin: 02/15/21 09:00 Dose: 40 mg Documented by: Quetiapine Fumarate (Quetiapine 100 Mg Tab) 300 mg PO [facility] Last Admin: 02/15/21 21:29 Dose: 300 mg Documented by: Trazodone HCl (Trazodone 50 Mg Tab) 50 mg PO QHS PRN PRN Reason: Insomnia Results - Results Labs/Vitals: Laboratory Last Values WBC 4.2 K/mm3 (4.5-11.0) L 02/07/21 09:11 RBC 4.95 M/mm3 (3.65-5.03) 02/07/21 09:11 Hgb 14.6 gm/dl (11.8-15.2) 02/07/21 09:11 Hct 44.8 % (35.5-45.6) 02/07/21 09:11 MCV 91 fl (84-94) 02/07/21 09:11 MCH 29 pg (28-32) 02/07/21 09:11 MCHC 33 % (32-34) 02/07/21 09:11 RDW 15.2 % (13.2-15.2) 02/07/21 09:11 Plt Count 118 K/mm3 (140-440) L 02/07/21 09:11 Lymph % (Auto) 34.0 % (13.4-35.0) 02/07/21 09:11 [place] % (Auto) 10.4 % (0.0-7.3) H 02/07/21 09:11 Eos % (Auto) 1.9 % (0.0-4.3) 02/07/21 09:11 Baso % (Auto) 0.4 % (0.0-1.8) 02/07/21 09:11 Lymph # (Auto) 1.4 K/mm3 (1.2-5.4) 02/07/21 09:11 [place] # (Auto) 0.4 K/mm3 (0.0-0.8) 02/07/21 09:11 Eos # (Auto) 0.1 K/mm3 (0.0-0.4) 02/07/21 09:11 Baso # (Auto) 0.0 K/mm3 (0.0-0.1) 02/07/21 09:11 Seg Neutrophils % 53.3 % (40.0-70.0) 02/07/21 09:11 Seg Neutrophils # 2.3 K/mm3 (1.8-7.7) 02/07/21 09:11 Sodium 139 mmol/L (137-145) 02/07/21 09:11 Potassium 4.4 mmol/L (3.6-5.0) 02/07/21 09:11 Chloride 102.8 mmol/L (98-107) 02/07/21 09:11 Carbon Dioxide 25 mmol/L (22-30) 02/07/21 09:11 Anion Gap 16 mmol/L 02/07/21 09:11 BUN 27 mg/dL (9-20) H 02/07/21 09:11 Creatinine 1.6 mg/dL (0.8-1.3) H 02/14/21 09:58 Estimated GFR 55 ml/min 02/14/21 09:58 BUN/Creatinine Ratio 17 % 02/07/21 09:11 Glucose 83 mg/dL (75-100) 02/07/21 09:11 POC Glucose 110 mg/dL (70-105) H 02/06/21 22:27 Calcium 9.4 mg/dL (8.4-10.2) 02/07/21 09:11 Total Bilirubin 0.50 mg/dL (0.1-1.2) 02/07/21 09:11 AST 55 units/L (5-40) H 02/07/21 09:11 ALT 31 units/L (7-56) 02/07/21 09:11 Alkaline Phosphatase 56 units/L (35-129) 02/07/21 09:11 Total Protein 7.5 g/dL (6.3-8.2) 02/07/21 09:11 Albumin 3.5 g/dL (3.9-5) L 02/07/21 09:11 Albumin/Globulin Ratio 0.9 % 02/07/21 09:11 Triglycerides 69 mg/dL (2-149) 02/07/21 09:11 Cholesterol 142 mg/dL (50-199) 02/07/21 09:11 LDL Cholesterol Direct 46 mg/dL (50-130) L 02/07/21 09:11 HDL Cholesterol 77 mg/dL (40-59) H 02/07/21 09:11 Cholesterol/HDL Ratio 1.84 % 02/07/21 09:11 TSH 1.120 mlU/mL (0.270-4.200) 02/07/21 09:11 Valproic Acid 80.9 ug/mL (50-100) 02/11/21 12:25 Hepatitis A IgM Ab Non-reactive (NonReactive) 02/07/21 09:11 Hep Bs Antigen Nonreactive (Negative) 02/07/21 09:11 Hep B Core IgM Ab Non-reactive (NonReactive) 02/07/21 09:11 Hepatitis C Antibody Non-reactive (NonReactive) 02/07/21 09:11 Last Vital Signs Temp 97.5 F L 02/16/21 07:09 Pulse 79 02/16/21 07:09 Resp 18 02/16/21 07:09 BP 123/84 02/16/21 07:09 Pulse Ox 99 02/16/21 07:09
[2021-02-16] MEDS: DIVALPROEX DR 500 MG TAB PO SCH ×3 (08:40→20:50)
[2021-02-16] MEDS: FLUoxetine 20 MG CAP PO SCH (09:18)
[2021-02-16] MEDS: PANTOPRAZOLE 40 MG TAB PO SCH (09:18)
[2021-02-16] MEDS: ASPIRIN EC 325 MG TAB PO SCH (09:18)
[2021-02-16] MEDS: amLODIPine 10 MG TAB PO SCH (09:18)
[2021-02-16] MEDS: BENZTROPINE 0.5 MG TAB PO SCH ×2 (09:18→21:16)
[2021-02-16] MEDS: QUEtiapine 100 MG TAB PO SCH (21:16)
[2021-02-16] MEDS: MIRTAZAPINE 15 MG TAB PO SCH (21:17)
--- NOTE | 2021-02-17 07:46 | Progress Note ---
Subjective Date of service: 02/17/21 Principal diagnosis: Schizoaffective Disorder Subjective Comment: 02/14/2021: The patient was seen eating breakfast, he states he is doing well. The patient states mood as "good." He reports sleep and appetite as good. He denies any current suicidal/homicidal ideation and denies hallucinations. per nurse, the patient had a quiet night. No changes made today. 02/15/2021: The patient was seen in the activity room awaiting breakfast. He reports sleep as poor and appetite as good. The patient denies any current suicidal/ homicidal ideation and denies hallucinations. Per nurse "overnight the pt rested quietly, presents as sleeping for approximately 9hrs, no distress noted, will continue to monitor for safety. " No changes made today. 02/16/2021: The patient was seen eating breakfast , he reports doing well. He reports sleep and appetite as good. He denies any current suicidal/homicidal ideation and denies hallucinations. per nurse, the patient had a quiet night. No changes made today. 02/17/2021: The patient reports doing well. He reports sleep and appetite as good. He denies any current suicidal/homicidal ideation and denies hallucination s. per nurse, the patient had a quiet night. No changes made today. REVIEW OF SYSTEMS Constitutional: Negative for weight loss ENT: Negative for stridor Respiratory: Negative for cough or hemoptysis All other systems reviewed and are negative MENTAL STATUS EXAMINATION General Appearance and Behavior: Age appropriate, good hygiene, wearing appropriate clothes, calm and cooperative polite with questioning. Cooperation: engaged Psychomotor Behavior: Psychomotor normal Mood: "good" Affect and affective range: congruent with stated mood Thought Process: Goal directed Thought Content: No SI Speech: Normal volume, Regular rate and rhythm, Suicidal Ideation: Denies Homicidal Ideation: Denies Hallucinations: Denies Delusions: None elicited Impulse Control: Unimpaired Insight and Judgment: Limited insight and poor judgment Memory: Limited Attention: attentive Orientation: alert and oriented Assessment and Plan (1) Schizoaffective Disorder Current Visit: Yes Status: Acute Treatment Plan Patient admitted for inpatient psychiatric evaluation, medication adjustment and close monitoring The patient's behavior, mood, sleep and appetite will be closely monitored. Patient enrolled in individual and group therapeutic sessions and encouraged to attend. Patient provided with a safe and structured environment. Patient's physical health needs will be addressed by the Hospitalist. Hospitalist Consulted Labs including CBC, CMP, Lipid profile and Hemoglobin A1C levels ordered for baseline reference Social Assessment will be completed and the Manager Program Management will work with patient and family to ensure a suitable and safe disposition Valproic level 02/11 - .9 Medication adjustment will be made as clinically indicated Continue Prozac 40mg po daily yesterday No changes today Usual Wellness Yarsanism/Preservation: - Start Trazodone 50 mg po QHS & 50 mg po QHS PRN between 10 PM & 2 AM for insomnia - Start Melatonin 5 mg po QHS to promote circadian rhythm The patient agreed on the treatment plan, understood the risk, benefit, alternative treatment, potential consequence of no treatment, and gave informed consent. Estimated days: 3 Post hospital care: primary care provider, psychiatric provider Case staffed with Dr. Hernandez Medications and Allergies Medications and Allergies Allergies Allergy/AdvReac Type Severity Reaction Status Date / Time No Known Allergies Allergy Verified 02/06/21 22:53 Home Medications Medication Instructions Recorded Confirmed Last Taken Type Aripiprazole Lauroxil [Aristada] 882 mg IM QMONTH 02/07/21 02/07/21 Unknown History Aspirin EC [Ecotrin] 325 mg PO QDAY 02/07/21 02/07/21 Unknown History Atorvastatin [Lipitor Tab] 80 mg PO QHS 02/07/21 02/07/21 Unknown History Benztropine [Cogentin] 0.5 mg PO BID 02/07/21 02/07/[address] Jameel MACHADO] 250 mg PO BID 02/07/21 02/07/[address] Jameel MACHADO] 500 mg PO TID 02/07/21 02/07/21 Unknown History Mirtazapine 7.5 mg PO HS 02/07/21 02/07/21 Unknown History OLANZapine [Zyprexa] 20 mg PO HS 02/07/21 02/07/21 Unknown History Pantoprazole [Protonix] 40 mg PO QDAY 02/07/21 02/07/21 Unknown History Quetiapine Fumarate [SEROquel] 300 mg PO HS 02/07/21 02/07/21 Unknown History amLODIPine [Norvasc] 10 mg PO DAILY 02/07/21 02/07/21 Unknown History Active Meds: Active Medications Amlodipine Besylate (Amlodipine 10 Mg Tab) 10 mg PO DAILY [facility] Last Admin: 02/16/21 09:18 Dose: 10 mg Documented by: Aspirin (Aspirin Ec 325 Mg Tab) 325 mg PO QDAY [facility] Last Admin: 02/16/21 09:18 Dose: 325 mg Documented by: Atorvastatin Calcium (Atorvastatin 40 Mg Tab) 80 mg PO QHS [facility] Last Admin: 02/16/21 21:16 Dose: 80 mg Documented by: Benztropine Mesylate (Benztropine 0.5 Mg Tab) 0.5 mg PO BID [facility] Last Admin: 02/16/21 21:16 Dose: 0.5 mg Documented by: Divalproex Sodium (Divalproex Dr 500 Mg Tab) 500 mg PO TID [facility] Last Admin: 02/16/21 20:50 Dose: 500 mg Documented by: Fluoxetine HCl (Fluoxetine 20 Mg Cap) 40 mg PO QDAY [facility] Last Admin: 02/16/21 09:18 Dose: 40 mg Documented by: Mirtazapine (Mirtazapine 15 Mg Tab) 7.5 mg PO QHS [facility] Last Admin: 02/16/21 21:17 Dose: 7.5 mg Documented by: Miscellaneous Medication (Aripiprazole Lauroxil [Aristada]) 882 mg IM QMONTH [facility] Olanzapine (Olanzapine 10 Mg Tab) 10 mg PO [facility] Last Admin: 02/16/21 21:16 Dose: 10 mg Documented by: Pantoprazole Sodium (Pantoprazole 40 Mg Tab) 40 mg PO QDAY [facility] Last Admin: 02/16/21 09:18 Dose: 40 mg Documented by: Quetiapine Fumarate (Quetiapine 100 Mg Tab) 300 mg PO [facility] Last Admin: 02/16/21 21:16 Dose: 300 mg Documented by: Trazodone HCl (Trazodone 50 Mg Tab) 50 mg PO QHS PRN PRN Reason: Insomnia Results - Results Labs/Vitals: Laboratory Last Values WBC 4.2 K/mm3 (4.5-11.0) L 02/07/21 09:11 RBC 4.95 M/mm3 (3.65-5.03) 02/07/21 09:11 Hgb 14.6 gm/dl (11.8-15.2) 02/07/21 09:11 Hct 44.8 % (35.5-45.6) 02/07/21 09:11 MCV 91 fl (84-94) 02/07/21 09:11 MCH 29 pg (28-32) 02/07/21 09:11 MCHC 33 % (32-34) 02/07/21 09:11 RDW 15.2 % (13.2-15.2) 02/07/21 09:11 Plt Count 118 K/mm3 (140-440) L 02/07/21 09:11 Lymph % (Auto) 34.0 % (13.4-35.0) 02/07/21 09:11 [place] % (Auto) 10.4 % (0.0-7.3) H 02/07/21 09:11 Eos % (Auto) 1.9 % (0.0-4.3) 02/07/21 09:11 Baso % (Auto) 0.4 % (0.0-1.8) 02/07/21 09:11 Lymph # (Auto) 1.4 K/mm3 (1.2-5.4) 02/07/21 09:11 [place] # (Auto) 0.4 K/mm3 (0.0-0.8) 02/07/21 09:11 Eos # (Auto) 0.1 K/mm3 (0.0-0.4) 02/07/21 09:11 Baso # (Auto) 0.0 K/mm3 (0.0-0.1) 02/07/21 09:11 Seg Neutrophils % 53.3 % (40.0-70.0) 02/07/21 09:11 Seg Neutrophils # 2.3 K/mm3 (1.8-7.7) 02/07/21 09:11 Sodium 139 mmol/L (137-145) 02/07/21 09:11 Potassium 4.4 mmol/L (3.6-5.0) 02/07/21 09:11 Chloride 102.8 mmol/L (98-107) 02/07/21 09:11 Carbon Dioxide 25 mmol/L (22-30) 02/07/21 09:11 Anion Gap 16 mmol/L 02/07/21 09:11 BUN 27 mg/dL (9-20) H 02/07/21 09:11 Creatinine 1.6 mg/dL (0.8-1.3) H 02/14/21 09:58 Estimated GFR 55 ml/min 02/14/21 09:58 BUN/Creatinine Ratio 17 % 02/07/21 09:11 Glucose 83 mg/dL (75-100) 02/07/21 09:11 POC Glucose 110 mg/dL (70-105) H 02/06/21 22:27 Calcium 9.4 mg/dL (8.4-10.2) 02/07/21 09:11 Total Bilirubin 0.50 mg/dL (0.1-1.2) 02/07/21 09:11 AST 55 units/L (5-40) H 02/07/21 09:11 ALT 31 units/L (7-56) 02/07/21 09:11 Alkaline Phosphatase 56 units/L (35-129) 02/07/21 09:11 Total Protein 7.5 g/dL (6.3-8.2) 02/07/21 09:11 Albumin 3.5 g/dL (3.9-5) L 02/07/21 09:11 Albumin/Globulin Ratio 0.9 % 02/07/21 09:11 Triglycerides 69 mg/dL (2-149) 02/07/21 09:11 Cholesterol 142 mg/dL (50-199) 02/07/21 09:11 LDL Cholesterol Direct 46 mg/dL (50-130) L 02/07/21 09:11 HDL Cholesterol 77 mg/dL (40-59) H 02/07/21 09:11 Cholesterol/HDL Ratio 1.84 % 02/07/21 09:11 TSH 1.120 mlU/mL (0.270-4.200) 02/07/21 09:11 Valproic Acid 80.9 ug/mL (50-100) 02/11/21 12:25 Hepatitis A IgM Ab Non-reactive (NonReactive) 02/07/21 09:11 Hep Bs Antigen Nonreactive (Negative) 02/07/21 09:11 Hep B Core IgM Ab Non-reactive (NonReactive) 02/07/21 09:11 Hepatitis C Antibody Non-reactive (NonReactive) 02/07/21 09:11 Last Vital Signs Temp 98.4 F 02/16/21 19:21 Pulse 86 02/16/21 19:21 Resp 16 02/16/21 19:21 BP 137/92 02/16/21 19:21 Pulse Ox 97 02/16/21 19:21
[2021-02-17] MEDS: amLODIPine 10 MG TAB PO SCH (09:48)
[2021-02-17] MEDS: DIVALPROEX DR 500 MG TAB PO SCH ×3 (09:48→20:27)
[2021-02-17] MEDS: ASPIRIN EC 325 MG TAB PO SCH (09:49)
[2021-02-17] MEDS: BENZTROPINE 0.5 MG TAB PO SCH ×2 (09:49→21:09)
[2021-02-17] MEDS: FLUoxetine 20 MG CAP PO SCH (09:50)
[2021-02-17] MEDS: PANTOPRAZOLE 40 MG TAB PO SCH (09:51)
[2021-02-17] MEDS: QUEtiapine 100 MG TAB PO SCH (21:08)
[2021-02-17] MEDS: MIRTAZAPINE 15 MG TAB PO SCH (21:09)
--- NOTE | 2021-02-18 08:52 | Progress Note ---
Subjective Date of service: 02/18/21 Principal diagnosis: Schizoaffective Disorder Subjective Comment: 02/14/2021: The patient was seen eating breakfast, he states he is doing well. The patient states mood as "good." He reports sleep and appetite as good. He denies any current suicidal/homicidal ideation and denies hallucinations. per nurse, the patient had a quiet night. No changes made today. 02/15/2021: The patient was seen in the activity room awaiting breakfast. He reports sleep as poor and appetite as good. The patient denies any current suicidal/ homicidal ideation and denies hallucinations. Per nurse "overnight the pt rested quietly, presents as sleeping for approximately 9hrs, no distress noted, will continue to monitor for safety. " No changes made today. 02/16/2021: The patient was seen eating breakfast , he reports doing well. He reports sleep and appetite as good. He denies any current suicidal/homicidal ideation and denies hallucinations. per nurse, the patient had a quiet night. No changes made today. 02/17/2021: The patient reports doing well. He reports sleep and appetite as good. He denies any current suicidal/homicidal ideation and denies hallucination s. per nurse, the patient had a quiet night. No changes made today. 02/18/2021: The patient states mood as OK. He reports sleep and appetite as good. He denies any current suicidal/homicidal ideation and denies hallucinations. per nurse, the patient had a quiet night. No changes made today. REVIEW OF SYSTEMS Constitutional: Negative for weight loss ENT: Negative for stridor Respiratory: Negative for cough or hemoptysis All other systems reviewed and are negative MENTAL STATUS EXAMINATION General Appearance and Behavior: Age appropriate, good hygiene, wearing appropriate clothes, calm and cooperative polite with questioning. Cooperation: engaged Psychomotor Behavior: Psychomotor normal Mood: "ok" Affect and affective range: congruent with stated mood Thought Process: Goal directed Thought Content: No SI Speech: Normal volume, Regular rate and rhythm, Suicidal Ideation: Denies Homicidal Ideation: Denies Hallucinations: Denies Delusions: None elicited Impulse Control: Unimpaired Insight and Judgment: Limited insight and poor judgment Memory: Limited Attention: attentive Orientation: alert and oriented Assessment and Plan (1) Schizoaffective Disorder Current Visit: Yes Status: Acute Treatment Plan Patient admitted for inpatient psychiatric evaluation, medication adjustment and close monitoring The patient's behavior, mood, sleep and appetite will be closely monitored. Patient enrolled in individual and group therapeutic sessions and encouraged to attend. Patient provided with a safe and structured environment. Patient's physical health needs will be addressed by the Hospitalist. Hospitalist Consulted Labs including CBC, CMP, Lipid profile and Hemoglobin A1C levels ordered for baseline reference Social Assessment will be completed and the Hot Wire Glass Tube Cutter will work with patient and family to ensure a suitable and safe disposition Valproic level / - 80.9 Medication adjustment will be made as clinically indicated Continue Prozac 40mg po daily yesterday No changes today Usual Wellness Caodaism/Preservation: - Start Trazodone 50 mg po QHS & 50 mg po QHS PRN between 10 PM & 2 AM for insomnia - Start Melatonin 5 mg po QHS to promote circadian rhythm The patient agreed on the treatment plan, understood the risk, benefit, alternative treatment, potential consequence of no treatment, and gave informed consent. Estimated days: 3 Post hospital care: primary care provider, psychiatric provider Case staffed with Dr. Hernandez Medications and Allergies Medications and Allergies Allergies Allergy/AdvReac Type Severity Reaction Status Date / Time No Known Allergies Allergy Verified 02/06/21 22:53 Home Medications Medication Instructions Recorded Confirmed Last Taken Type Aripiprazole Lauroxil [Aristada] 882 mg IM QMONTH 02/07/21 02/07/21 Unknown History Aspirin EC [Ecotrin] 325 mg PO QDAY 02/07/21 02/07/21 Unknown History Atorvastatin [Lipitor Tab] 80 mg PO QHS 02/07/21 02/07/21 Unknown History Benztropine [Cogentin] 0.5 mg PO BID 02/07/21 02/07/21 Unknown History Divalproex [Mayo MACHADO] 250 mg PO BID 02/07/21 02/07/21 Unknown History Divalproex [Mayo MACHADO] 500 mg PO TID 02/07/21 02/07/21 Unknown History Mirtazapine 7.5 mg PO HS 02/07/21 02/07/21 Unknown History OLANZapine [Zyprexa] 20 mg PO HS 02/07/21 02/07/21 Unknown History Pantoprazole [Protonix] 40 mg PO QDAY 02/07/21 02/07/21 Unknown History Quetiapine Fumarate [SEROquel] 300 mg PO HS 02/07/21 02/07/21 Unknown History amLODIPine [Norvasc] 10 mg PO DAILY 02/07/21 02/07/21 Unknown History Active Meds: Active Medications Amlodipine Besylate (Amlodipine 10 Mg Tab) 10 mg PO DAILY [facility] Last Admin: 02/17/21 09:48 Dose: 10 mg Documented by: Aspirin (Aspirin Ec 325 Mg Tab) 325 mg PO QDAY [facility] Last Admin: 02/17/21 09:49 Dose: 325 mg Documented by: Atorvastatin Calcium (Atorvastatin 40 Mg Tab) 80 mg PO QHS [facility] Last Admin: 02/17/21 21:09 Dose: 80 mg Documented by: Benztropine Mesylate (Benztropine 0.5 Mg Tab) 0.5 mg PO BID [facility] Last Admin: 02/17/21 21:09 Dose: 0.5 mg Documented by: Divalproex Sodium (Divalproex Dr 500 Mg Tab) 500 mg PO TID [facility] Last Admin: 02/17/21 20:27 Dose: 500 mg Documented by: Fluoxetine HCl (Fluoxetine 20 Mg Cap) 40 mg PO QDAY [facility] Last Admin: 02/17/21 09:50 Dose: 40 mg Documented by: Mirtazapine (Mirtazapine 15 Mg Tab) 7.5 mg PO QHS [facility] Last Admin: 02/17/21 21:09 Dose: 7.5 mg Documented by: Miscellaneous Medication (Aripiprazole Lauroxil [Aristada]) 882 mg IM QMONTH [facility] Olanzapine (Olanzapine 10 Mg Tab) 10 mg PO [facility] Last Admin: 02/17/21 21:08 Dose: 10 mg Documented by: Pantoprazole Sodium (Pantoprazole 40 Mg Tab) 40 mg PO QDAY [facility] Last Admin: 02/17/21 09:51 Dose: 40 mg Documented by: Quetiapine Fumarate (Quetiapine 100 Mg Tab) 300 mg PO [facility] Last Admin: 02/17/21 21:08 Dose: 300 mg Documented by: Trazodone HCl (Trazodone 50 Mg Tab) 50 mg PO QHS PRN PRN Reason: Insomnia Results - Results Labs/Vitals: Laboratory Last Values WBC 4.2 K/mm3 (4.5-11.0) L 02/07/21 09:11 RBC 4.95 M/mm3 (3.65-5.03) 02/07/21 09:11 Hgb 14.6 gm/dl (11.8-15.2) 02/07/21 09:11 Hct 44.8 % (35.5-45.6) 02/07/21 09:11 MCV 91 fl (84-94) 02/07/21 09:11 MCH 29 pg (28-32) 02/07/21 09:11 MCHC 33 % (32-34) 02/07/21 09:11 RDW 15.2 % (13.2-15.2) 02/07/21 09:11 Plt Count 118 K/mm3 (140-440) L 02/07/21 09:11 Lymph % (Auto) 34.0 % (13.4-35.0) 02/07/21 09:11 [place] % (Auto) 10.4 % (0.0-7.3) H 02/07/21 09:11 Eos % (Auto) 1.9 % (0.0-4.3) 02/07/21 09:11 Baso % (Auto) 0.4 % (0.0-1.8) 02/07/21 09:11 Lymph # (Auto) 1.4 K/mm3 (1.2-5.4) 02/07/21 09:11 [place] # (Auto) 0.4 K/mm3 (0.0-0.8) 02/07/21 09:11 Eos # (Auto) 0.1 K/mm3 (0.0-0.4) 02/07/21 09:11 Baso # (Auto) 0.0 K/mm3 (0.0-0.1) 02/07/21 09:11 Seg Neutrophils % 53.3 % (40.0-70.0) 02/07/21 09:11 Seg Neutrophils # 2.3 K/mm3 (1.8-7.7) 02/07/21 09:11 Sodium 139 mmol/L (137-145) 02/07/21 09:11 Potassium 4.4 mmol/L (3.6-5.0) 02/07/21 09:11 Chloride 102.8 mmol/L (98-107) 02/07/21 09:11 Carbon Dioxide 25 mmol/L (22-30) 02/07/21 09:11 Anion Gap 16 mmol/L 02/07/21 09:11 BUN 27 mg/dL (9-20) H 02/07/21 09:11 Creatinine 1.6 mg/dL (0.8-1.3) H 02/14/21 09:58 Estimated GFR 55 ml/min 02/14/21 09:58 BUN/Creatinine Ratio 17 % 02/07/21 09:11 Glucose 83 mg/dL (75-100) 02/07/21 09:11 POC Glucose 110 mg/dL (70-105) H 02/06/21 22:27 Calcium 9.4 mg/dL (8.4-10.2) 02/07/21 09:11 Total Bilirubin 0.50 mg/dL (0.1-1.2) 02/07/21 09:11 AST 55 units/L (5-40) H 02/07/21 09:11 ALT 31 units/L (7-56) 02/07/21 09:11 Alkaline Phosphatase 56 units/L (35-129) 02/07/21 09:11 Total Protein 7.5 g/dL (6.3-8.2) 02/07/21 09:11 Albumin 3.5 g/dL (3.9-5) L 02/07/21 09:11 Albumin/Globulin Ratio 0.9 % 02/07/21 09:11 Triglycerides 69 mg/dL (2-149) 02/07/21 09:11 Cholesterol 142 mg/dL (50-199) 02/07/21 09:11 LDL Cholesterol Direct 46 mg/dL (50-130) L 02/07/21 09:11 HDL Cholesterol 77 mg/dL (40-59) H 02/07/21 09:11 Cholesterol/HDL Ratio 1.84 % 02/07/21 09:11 TSH 1.120 mlU/mL (0.270-4.200) 02/07/21 09:11 Valproic Acid 80.9 ug/mL (50-100) 02/11/21 12:25 Hepatitis A IgM Ab Non-reactive (NonReactive) 02/07/21 09:11 Hep Bs Antigen Nonreactive (Negative) 02/07/21 09:11 Hep B Core IgM Ab Non-reactive (NonReactive) 02/07/21 09:11 Hepatitis C Antibody Non-reactive (NonReactive) 02/07/21 09:11 Last Vital Signs Temp 98.9 F 02/18/21 07:29 Pulse 79 02/18/21 07:29 Resp 18 02/18/21 07:29 BP 116/72 02/18/21 07:29 Pulse Ox 99 02/18/21 07:29
[2021-02-18] MEDS: ASPIRIN EC 325 MG TAB PO SCH (09:12)
[2021-02-18] MEDS: PANTOPRAZOLE 40 MG TAB PO SCH (09:12)
[2021-02-18] MEDS: FLUoxetine 20 MG CAP PO SCH (09:12)
[2021-02-18] MEDS: DIVALPROEX DR 500 MG TAB PO SCH ×3 (09:13→20:52)
[2021-02-18] MEDS: amLODIPine 10 MG TAB PO SCH (09:13)
[2021-02-18] MEDS: BENZTROPINE 0.5 MG TAB PO SCH ×2 (09:14→21:11)
--- NOTE | 2021-02-18 16:34 | Progress Note ---
Assessment and Plan Assessment and plan: --History of bronchial asthma; Patient is stable no shortness of breath However albuterol inhaler every 6 hours as needed for shortness of breath and wheeze --Hypertension; well controlled Continue current home antihypertensives And as needed hydralazine. --History of HIV; Resume home medications --Acute kidney injury; vasomotor nephropathy Closely monitor renal function Avoid nephrotoxins --Dyslipidemia; continue statin --DVT prophylaxis; SCDs while resting --Full CODE STATUS Patient is medically stable May need to see his primary care physician for his medical needs upon discharge Thank you for this consultation Follow the patient along with you, call us with questions History Interval history: I have seen and examined the patient at the bedside in psych unit Patient is in activities room no new complaints Excited that he is going home tomorrow Vital signs reviewed Hospitalist Physical - Constitutional Vitals: Temp Pulse Resp BP Pulse Ox 98.9 F 79 18 116/72 99 02/18/21 07:29 02/18/21 09:13 02/18/21 07:29 02/18/21 09:13 02/18/21 07:29 General appearance: Present: no acute distress, well-nourished, other (Excited to go home tomorrow) - EENT Eyes: Present: PERRL, EOM intact - Respiratory Respiratory effort: normal Respiratory: bilateral: diminished, negative: rales, rhonchi, wheezing - Cardiovascular Rhythm: regular Heart Sounds: Present: S1 & S2 - Extremities Extremities: no ischemia, No edema - Abdominal General gastrointestinal: soft, non-tender, non-distended, normal bowel sounds - Integumentary Integumentary: Present: clear, warm - Psychiatric Psychiatric: appropriate mood/affect, cooperative - Neurologic Neurologic: CNII-XII intact, moves all extremities Results - Labs CBC & Chem 7: 02/07/21 09:11 02/14/21 09:58 Labs: Laboratory Last Values WBC 4.2 K/mm3 (4.5-11.0) L 02/07/21 09:11 RBC 4.95 M/mm3 (3.65-5.03) 02/07/21 09:11 Hgb 14.6 gm/dl (11.8-15.2) 02/07/21 09:11 Hct 44.8 % (35.5-45.6) 02/07/21 09:11 MCV 91 fl (84-94) 02/07/21 09:11 MCH 29 pg (28-32) 02/07/21 09:11 MCHC 33 % (32-34) 02/07/21 09:11 RDW 15.2 % (13.2-15.2) 02/07/21 09:11 Plt Count 118 K/mm3 (140-440) L 02/07/21 09:11 Lymph % (Auto) 34.0 % (13.4-35.0) 02/07/21 09:11 [place] % (Auto) 10.4 % (0.0-7.3) H 02/07/21 09:11 Eos % (Auto) 1.9 % (0.0-4.3) 02/07/21 09:11 Baso % (Auto) 0.4 % (0.0-1.8) 02/07/21 09:11 Lymph # (Auto) 1.4 K/mm3 (1.2-5.4) 02/07/21 09:11 [place] # (Auto) 0.4 K/mm3 (0.0-0.8) 02/07/21 09:11 Eos # (Auto) 0.1 K/mm3 (0.0-0.4) 02/07/21 09:11 Baso # (Auto) 0.0 K/mm3 (0.0-0.1) 02/07/21 09:11 Seg Neutrophils % 53.3 % (40.0-70.0) 02/07/21 09:11 Seg Neutrophils # 2.3 K/mm3 (1.8-7.7) 02/07/21 09:11 Sodium 139 mmol/L (137-145) 02/07/21 09:11 Potassium 4.4 mmol/L (3.6-5.0) 02/07/21 09:11 Chloride 102.8 mmol/L (98-107) 02/07/21 09:11 Carbon Dioxide 25 mmol/L (22-30) 02/07/21 09:11 Anion Gap 16 mmol/L 02/07/21 09:11 BUN 27 mg/dL (9-20) H 02/07/21 09:11 Creatinine 1.6 mg/dL (0.8-1.3) H 02/14/21 09:58 Estimated GFR 55 ml/min 02/14/21 09:58 BUN/Creatinine Ratio 17 % 02/07/21 09:11 Glucose 83 mg/dL (75-100) 02/07/21 09:11 POC Glucose 110 mg/dL (70-105) H 02/06/21 22:27 Calcium 9.4 mg/dL (8.4-10.2) 02/07/21 09:11 Total Bilirubin 0.50 mg/dL (0.1-1.2) 02/07/21 09:11 AST 55 units/L (5-40) H 02/07/21 09:11 ALT 31 units/L (7-56) 02/07/21 09:11 Alkaline Phosphatase 56 units/L (35-129) 02/07/21 09:11 Total Protein 7.5 g/dL (6.3-8.2) 02/07/21 09:11 Albumin 3.5 g/dL (3.9-5) L 02/07/21 09:11 Albumin/Globulin Ratio 0.9 % 02/07/21 09:11 Triglycerides 69 mg/dL (2-149) 02/07/21 09:11 Cholesterol 142 mg/dL (50-199) 02/07/21 09:11 LDL Cholesterol Direct 46 mg/dL (50-130) L 02/07/21 09:11 HDL Cholesterol 77 mg/dL (40-59) H 02/07/21 09:11 Cholesterol/HDL Ratio 1.84 % 02/07/21 09:11 TSH 1.120 mlU/mL (0.270-4.200) 02/07/21 09:11 Valproic Acid 80.9 ug/mL (50-100) 02/11/21 12:25 Hepatitis A IgM Ab Non-reactive (NonReactive) 02/07/21 09:11 Hep Bs Antigen Nonreactive (Negative) 02/07/21 09:11 Hep B Core IgM Ab Non-reactive (NonReactive) 02/07/21 09:11 Hepatitis C Antibody Non-reactive (NonReactive) 02/07/21 09:11 Nunez/IV: Voiding Method Toilet Active Medications - Current Medications Current Medications: Generic Name Dose Route Start Last Admin Trade Name Freq PRN Reason Stop Dose Admin Amlodipine Besylate 10 mg 02/07/21 11:00 02/18/21 09:13 Amlodipine 10 Mg Tab PO 10 mg DAILY [facility] Administration Aspirin 325 mg 02/07/21 11:00 02/18/21 09:12 Aspirin Ec 325 Mg Tab PO 325 mg QDAY [facility] Administration Atorvastatin Calcium 80 mg 02/07/21 22:00 02/17/21 21:09 Atorvastatin 40 Mg Tab PO 80 mg QHS [facility] Administration Benztropine Mesylate 0.5 mg 02/07/21 11:00 02/18/21 09:14 Benztropine 0.5 Mg Tab PO 0.5 mg BID [facility] Administration Divalproex Sodium 500 mg 02/14/21 20:00 02/18/21 13:[address] 500 Mg Tab PO 500 mg TID [facility] Administration Fluoxetine HCl 40 mg 02/13/21 10:00 02/18/21 09:12 Fluoxetine 20 Mg Cap PO 40 mg QDAY [facility] Administration Mirtazapine 7.5 mg 02/07/21 22:00 02/17/21 21:09 Mirtazapine 15 Mg Tab PO 7.5 mg QHS [facility] Administration Miscellaneous Medication 882 mg 02/07/21 10:30 Aripiprazole Lauroxil [Aristada] IM QMONTH [facility] Olanzapine 10 mg 02/07/21 22:00 02/17/21 21:08 Olanzapine 10 Mg Tab PO 10 mg HS [facility] Administration Pantoprazole Sodium 40 mg 02/07/21 11:00 02/18/21 09:12 Pantoprazole 40 Mg Tab PO 40 mg QDAY [facility] Administration Quetiapine Fumarate 300 mg 02/07/21 22:00 02/17/21 21:08 Quetiapine 100 Mg Tab PO 300 mg HS [facility] Administration Trazodone HCl 50 mg 02/07/21 22:00 Trazodone 50 Mg Tab PO QHS PRN Insomnia Nutrition/Malnutrition Assess - Dietary Evaluation Nutrition/Malnutrition Findings: Nutrition Notes Start: 02/13/21 13:20 Freq: Status: Active Protocol: Document 02/13/21 13:20 EB (Rec: 02/13/21 13:27 [id number]) Nutrition Notes Need for Assessment generated from: LOS Initial or Follow up Assessment Other Pertinent Diagnosis Schizoeffective disorder Current Diet Regular Labs/Tests Reviewed Pertinent Medications Reviewed Height 5 ft 8.9 in Weight 87.8 kg [place] Body Weight (kg) 72.45 BMI 28.6 Weight Status Overweight Subjective/Other Information RD screened for LOS. Spoke with pt's RN who reports pt has very good appetite and consumed 100% of each meal daily. Percent of energy/protein needs met: 100%/100% Burn Absent Trauma Absent GI Symptoms None Current % PO Good (75-100%) #1 Nutrition Diagnosis No nutrition diagnosis at this time Is patient on ventilator? No Is Patient Ambulatory and/or Out of Bed Yes REE-([place]-ambulatory/OOB) [ 2225.275 NUTR.[id number]] Kcal/Kg value to use for calculation 22 Approximate Energy Requirements Using 1932 kcal/Kg Calculation Used for Recommendations Kcal/kg Additional Notes PRO: 57-72 g/day Fluid: 1 mL/kcal Nutrition Intervention Change Diet Order: Continue current diet Goal #1 Continue to meet hanane and protein needs via PO intake Revisit per MD consult or patient Sign Off request:
[2021-02-18] MEDS: MIRTAZAPINE 15 MG TAB PO SCH (21:12)
[2021-02-18] MEDS: QUEtiapine 100 MG TAB PO SCH (21:14)
--- NOTE | 2021-02-19 06:56 | Discharge Summary ---
Providers - Providers Date of Admission: 02/06/21 21:49 Date of discharge: 02/19/21 Attending physician: JHON CABELLO MD 02/06/21 18:01 Consult to Physician [CONS] Routine Comment: Consulting Provider: MARCUS ANGELA Physician Instructions: Reason For Exam: manage medical condition Primary care physician: SPECIAL SYSTEMS TECHNICIAN Hospitalization Reason for admission: depression Admitting Diagnosis: F25.9 - SCHIZOAFFECTIVE DISORDER, UNSPECIFIED Hospital course: The patient was provided inpatient psychiatric treatment with safe and supportive care, medication adjustment, adverse effect monitoring, medical evaluations, medical treatments, assessment and psycho-education. The patient's mood, cognition, behavior, moral support are improved and stabilized. St the time of discharge, the patient had no endangering behavior and no debilitating adverse effects. The patient agreed on potential consequences of no treatment and gave informed consent. 02/07 Nelson Duvall is a 55y/o male patient who was seen today. The patient is slow to respond. He is a poor historian. He is calm and cooperative. He says he is depressed and has racing thoughts. The patient says he has bipolar but he could not tell what meds he was on outside of trazodone. He denies SI/HI or hallucinations of any kind. He denies any illicit drug use, alcohol or nicotine. 02/08 The patient was seen today, he is slow to respond. He is looking around as he speaks. He appears delayed. The patient could possibly be responding to internal stimuli, although he denies hallucinations. He does verbalized depression. He denies hallucinations. 02/09 The patient was seen today, he is slow to respond. He says he's "doing alright, but a little depressed." He denies SI/HI or hallucinatoins. 02/11 The patient was seen today, he says he's is doing better, but still a little depressed. He denies SI/HI. He also denies hallucinations of any kind. Will continue to treat and plan for a safe discharge tomorrow if no events. 02/12 The patient was seen today, he verbalizes being depressed. He is very quiet. He denies SI/HI or hallucinations. 02/13 The patient was seen today, I informed him I has spoken to his brother. He was happy to hear that. He denies SI/HI. The patient verbalized being ready to go home with his family. He denies SI/HI or hallucinations. He does still endorse "depressed a little." I spoke with the patient's brother. He says the patient is normally talkative, loves to talk about sports and is pretty sharp. He says they lost their mother in April and the patient has had a hard time dealing with it. He says he feels that his brother needs an assistant hall director living program because he will not take his meds. He says he found one, but the patient was denies and they told him he could appeal it. The patient's brother says he is concerned about the patient being discharge because he is "not the Nelson he knows." 02/14/2021: The patient was seen eating breakfast, he states he is doing well. The patient states mood as "good." He reports sleep and appetite as good. He denies any current suicidal/homicidal ideation and denies hallucinations. per nurse, the patient had a quiet night. No changes made today. 02/15/2021: The patient was seen in the activity room awaiting breakfast. He reports sleep as poor and appetite as good. The patient denies any current suicidal/ homicidal ideation and denies hallucinations. Per nurse "overnight the pt rested quietly, presents as sleeping for approximately 9hrs, no distress noted, will continue to monitor for safety. " No changes made today. 02/16/2021: The patient was seen eating breakfast , he reports doing well. He reports sleep and appetite as good. He denies any current suicidal/homicidal ideation and denies hallucinations. per nurse, the patient had a quiet night. No changes made today. 02/17/2021: The patient reports doing well. He reports sleep and appetite as good. He denies any current suicidal/homicidal ideation and denies hallucinations. per nurse, the patient had a quiet night. No changes made today. 02/18/2021: The patient states mood as OK. He reports sleep and appetite as good. He denies any current suicidal/homicidal ideation and denies hallucinations. per nurse, the patient had a quiet night. No changes made today. Disposition: 01 HOME / SELF CARE / HOMELESS Time spent for discharge: 40 Allergies/Adverse Reactions: Allergies No Known Allergies Allergy (Verified 02/06/21 22:53) Vital Signs: Last Vital Signs Temp 98.9 F 02/18/21 19:29 Pulse 86 02/18/21 19:29 Resp 16 02/18/21 19:29 BP 127/83 02/18/21 19:29 Pulse Ox 98 02/18/21 19:29 Last Lab: Laboratory Last Values WBC 4.2 K/mm3 (4.5-11.0) L 02/07/21 09:11 RBC 4.95 M/mm3 (3.65-5.03) 02/07/21 09:11 Hgb 14.6 gm/dl (11.8-15.2) 02/07/21 09:11 Hct 44.8 % (35.5-45.6) 02/07/21 09:11 MCV 91 fl (84-94) 02/07/21 09:11 MCH 29 pg (28-32) 02/07/21 09:11 MCHC 33 % (32-34) 02/07/21 09:11 RDW 15.2 % (13.2-15.2) 02/07/21 09:11 Plt Count 118 K/mm3 (140-440) L 02/07/21 09:11 Lymph % (Auto) 34.0 % (13.4-35.0) 02/07/21 09:11 [place] % (Auto) 10.4 % (0.0-7.3) H 02/07/21 09:11 Eos % (Auto) 1.9 % (0.0-4.3) 02/07/21 09:11 Baso % (Auto) 0.4 % (0.0-1.8) 02/07/21 09:11 Lymph # (Auto) 1.4 K/mm3 (1.2-5.4) 02/07/21 09:11 [place] # (Auto) 0.4 K/mm3 (0.0-0.8) 02/07/21 09:11 Eos # (Auto) 0.1 K/mm3 (0.0-0.4) 02/07/21 09:11 Baso # (Auto) 0.0 K/mm3 (0.0-0.1) 02/07/21 09:11 Seg Neutrophils % 53.3 % (40.0-70.0) 02/07/21 09:11 Seg Neutrophils # 2.3 K/mm3 (1.8-7.7) 02/07/21 09:11 Sodium 139 mmol/L (137-145) 02/07/21 09:11 Potassium 4.4 mmol/L (3.6-5.0) 02/07/21 09:11 Chloride 102.8 mmol/L (98-107) 02/07/21 09:11 Carbon Dioxide 25 mmol/L (22-30) 02/07/21 09:11 Anion Gap 16 mmol/L 02/07/21 09:11 BUN 27 mg/dL (9-20) H 02/07/21 09:11 Creatinine 1.6 mg/dL (0.8-1.3) H 02/14/21 09:58 Estimated GFR 55 ml/min 02/14/21 09:58 BUN/Creatinine Ratio 17 % 02/07/21 09:11 Glucose 83 mg/dL (75-100) 02/07/21 09:11 POC Glucose 110 mg/dL (70-105) H 02/06/21 22:27 Calcium 9.4 mg/dL (8.4-10.2) 02/07/21 09:11 Total Bilirubin 0.50 mg/dL (0.1-1.2) 02/07/21 09:11 AST 55 units/L (5-40) H 02/07/21 09:11 ALT 31 units/L (7-56) 02/07/21 09:11 Alkaline Phosphatase 56 units/L (35-129) 02/07/21 09:11 Total Protein 7.5 g/dL (6.3-8.2) 02/07/21 09:11 Albumin 3.5 g/dL (3.9-5) L 02/07/21 09:11 Albumin/Globulin Ratio 0.9 % 02/07/21 09:11 Triglycerides 69 mg/dL (2-149) 02/07/21 09:11 Cholesterol 142 mg/dL (50-199) 02/07/21 09:11 LDL Cholesterol Direct 46 mg/dL (50-130) L 02/07/21 09:11 HDL Cholesterol 77 mg/dL (40-59) H 02/07/21 09:11 Cholesterol/HDL Ratio 1.84 % 02/07/21 09:11 TSH 1.120 mlU/mL (0.270-4.200) 02/07/21 09:11 Valproic Acid 80.9 ug/mL (50-100) 02/11/21 12:25 Hepatitis A IgM Ab Non-reactive (NonReactive) 02/07/21 09:11 Hep Bs Antigen Nonreactive (Negative) 02/07/21 09:11 Hep B Core IgM Ab Non-reactive (NonReactive) 02/07/21 09:11 Hepatitis C Antibody Non-reactive (NonReactive) 02/07/21 09:11 Core Measure Documentation - Palliative Care Palliative Care/ Comfort Measures: Not Applicable - Core Measures Any of the following diagnoses?: none Exam - Constitutional Vitals: Temp Pulse Resp BP Pulse Ox 98.9 F 86 16 127/83 98 02/18/21 19:29 02/18/21 19:29 02/18/21 19:29 02/18/21 19:29 02/18/21 19:29 General appearance: Present: no acute distress - EENT Eyes: Present: PERRL ENT: hearing intact, clear oral mucosa, dentition normal - Neck Neck: Present: supple, normal ROM - Respiratory Respiratory effort: normal Plan Activity: advance as tolerated Weight Bearing Status: Weight Bear as Tolerated Care Plan Goals: Maintain good and stable mental health Plan of Treatment: The patient should be compliant with medications, not to use drugs, and not to drink alcohol. The patient understands that if suicidal ideas, homicidal ideas or any endangering feeling arise, the patient should seek assistance including, but not limited to crisis hotline, and emergency room. Assessment: Schizophrenia Follow up with: PRIMARY CARE, [Primary Care Provider] - 7 Days Prescriptions: traZODone [Desyrel] 50 mg PO QHS PRN #30 tablet PRN Reason: Insomnia Divalproex Dr [Depakote Dr] 500 mg PO TID #90 tablet Mirtazapine 7.5 mg PO HS #30 FLUoxetine [PROzac] 40 mg PO QDAY #60 capsule Quetiapine Fumarate [SEROquel] 300 mg PO HS #30 OLANzapine [Zyprexa] 10 mg PO HS #30 tablet
[2021-02-19] MEDS: DIVALPROEX DR 500 MG TAB PO SCH (09:19)
[2021-02-19] MEDS: PANTOPRAZOLE 40 MG TAB PO SCH (09:19)
[2021-02-19] MEDS: amLODIPine 10 MG TAB PO SCH (09:20)
[2021-02-19] MEDS: ASPIRIN EC 325 MG TAB PO SCH (09:20)
[2021-02-19] MEDS: BENZTROPINE 0.5 MG TAB PO SCH (09:20)
[2021-02-19] MEDS: FLUoxetine 20 MG CAP PO SCH (09:20)
[2021-02-19 09:21] VITALS: BP 119/79
== END 2021-02-19 12:46 | disposition home or self-care (01) | DRG 885 ==
LOC: UNDOADMIN 17:49 → 3A 17:49 → 5A 21:49
PROVIDERS: ADMIT Psychiatry & Neurology Psychiatry; ATTEND Psychiatry & Neurology Psychiatry
DX: F25.9 Schizoaffective disorder, unspecified (principal); N17.0 Acute kidney failure with tubular necrosis; I10 Essential (primary) hypertension; E78.5 Hyperlipidemia, unspecified; J45.909 Unspecified asthma, uncomplicated; Z79.899 Other long term (current) drug therapy; Z79.82 Long term (current) use of aspirin
CPT/HCPCS: 36415; 80053; 80061; 80074; 80164; 82565; 82962; 84443; 85025; G0378; A9270-GY